=== PATIENT | male | born 1970 | race Caucasian/White ===

== ENCOUNTER 2018-03-25 11:56 | Day surgery (SDC) | payer OTHER ==
[2018-03-25] MEDS ORDERED: PROPOFOL 60 ML (14:45)
[2018-03-25] MEDS ORDERED: LIDOCAINE 2% (SDV) 5 ML INJ (14:45)
== END 2018-03-25 16:57 | disposition home or self-care (01) ==
LOC: GIL 11:56
DX: K29.60 Other gastritis without bleeding (principal); K64.8 Other hemorrhoids; E78.5 Hyperlipidemia, unspecified; I10 Essential (primary) hypertension; E66.9 Obesity, unspecified; Z68.32 Body mass index [BMI] 32.0-32.9, adult
CPT/HCPCS: 43239; 88305; 88312

== ENCOUNTER 2018-09-14 11:43 | Inpatient (IN) | payer OTHER ==
[2018-09-14 12:58] LABS: ADD MAN DIFF? NO
[2018-09-14 13:00] LABS: ABNORMAL IP MESSAGE 1; BASOPHILS % 0.2 % (0.0-2.0); EOSINOPHILS # 0.1 10^3/ul (0.0-0.5); EOSINOPHILS % 1.4 % (0.0-7.0); HEMATOCRIT 23.8 % (42.0-52.0); LYMPHOCYTES # 1.1 10^3/ul (0.8-2.9); LYMPHOCYTES % 21.1 % (15.0-51.0); MEAN CORPUSCULAR HEMOGLOBIN 17.3 pg (29.0-33.0); MEAN CORPUSCULAR HGB CONC 25.2 g/dl (32.0-37.0); MEAN CORPUSCULAR VOLUME 68.6 fl (82.0-101.0); MEAN PLATELET VOLUME 9.4 fl (7.4-10.4); MONOCYTE # 0.3 10^3/ul (0.3-0.9); MONOCYTES % 5.6 % (0.0-11.0); NEUTROPHIL # 3.6 10^3/ul (1.6-7.5); NEUTROPHILS % 71.5 % (39.0-77.0); PLATELET COUNT 477 10^3/UL (140-415); POSITIVE DIFF @See below; RED BLOOD COUNT 3.47 10^6/ul (4.70-6.10); RED CELL DISTRIBUTION WIDTH 19.8 % (11.5-14.5)
[2018-09-14 13:05] LABS: INR 1.07; PATH REVIEW? YES; PT RATIO 1.1
[2018-09-14 13:06] LABS: PARTIAL THROMBOPLASTIN TIME 27.1 Sec (23.0-35.0)
[2018-09-14 13:07] LABS: ALANINE AMINOTRANSFERASE 19 IU/L (13-69); ALBUMIN 3.9 g/dl (3.3-4.9); ALKALINE PHOSPHATASE 74 IU/L (42-121); ANION GAP 9 (5-13); ASPARTATE AMINO TRANSFERASE 9 IU/L (15-46); BILIRUBIN,INDIRECT 0.4 mg/dl (0-1.1); BILIRUBIN,TOTAL 0.4 mg/dl (0.2-1.3); BLOOD UREA NITROGEN 11 mg/dl (7-20); CALCIUM 9.1 mg/dl (8.4-10.2); CARBON DIOXIDE 28 mmol/L (21-31); CHLORIDE 103 mmol/L (97-110); Estimated GFR > 60 mL/min (>60); GLUCOSE 103 mg/dl (70-220); POTASSIUM 3.9 mmol/L (3.5-5.1); SODIUM 140 mmol/L (135-144); TOTAL PROTEIN 6.5 g/dl (6.1-8.1)
[2018-09-14 13:30] LABS: ANISOCYTOSIS 3+ (0-0); BAND NEUTROPHILS % (M) 1 % (0-4); ELLIPTO 1+ (0-0); EOSINOPHILS % (M) 2 % (0-7); HYPOCHROMASIA 3+ (0-0); LYMPHOCYTES #M 0.7 10^3/ul (0.8-2.9); LYMPHOCYTES % (M) 15 % (15-51); MICROCYTOSIS 3+ (0-0); MONOCYTE #M 0.3 10^3/ul (0.3-0.9); MONOCYTES % (M) 7 % (0-11); OVALOCYTES 1+ (0-0); PLATELET ESTIMATE NORMAL; PLATELET MORPHOLOGY COMMENT @See below; POIKILOCYTOSIS 3+ (0-0); POLYCHROMASIA 3+ (0-0); REACTIVE LYMPHOCYTES #M 0.1 10^3/ul (0.0-0.0); REACTIVE LYMPHOCYTES% (M) 2 % (0-0); SEG NEUT #M 3.7 10^3/ul (1.6-7.5); SEGMENTED NEUTROPHILS (M) % 73 % (39-77); TEAR DROP CELLS 1+ (0-0)
[2018-09-14 13:40] LABS: TROPONIN-I < 0.012 ng/ml (0.000-0.120)
[2018-09-14] MEDS ORDERED: NACL 0.9% 3 ML SYG IV (14:00)
[2018-09-14] MEDS ORDERED: HYDROCODONE/APAP (5/325) TAB PO (14:00)
[2018-09-14] MEDS ORDERED: ACETAMINOPHEN 325 MG TAB PO (14:00)
[2018-09-14] MEDS ORDERED: ONDANSETRON 4 MG INJ IV (14:00)
[2018-09-14 14:17] LABS: IRON < 10 ug/dl (35-150)
[2018-09-14 14:24] LABS: TOTAL IRON BINDING CAPACITY 402 ug/dl (241-421)
[2018-09-14] MEDS: SOD CHLORIDE 0.9% 1,000 ML IV ×2 (14:30→21:12)
[2018-09-14 15:13] LABS: IMMEDIATE SPIN CROSSMATCH 1 2
[2018-09-14 19:24] LABS: FERRITIN 4.7 ng/ml (11.1-264.0)
[2018-09-14] MEDS: HYDROCORTISONE 25 MG SUPP PR (21:00)
[2018-09-14] MEDS: PANTOPRAZOLE 40 MG INJ IV (21:09)
[2018-09-15 04:33] LABS: ADD MAN DIFF? NO
[2018-09-15 04:36] LABS: ABNORMAL IP MESSAGE 1; BASOPHIL # 0.1 10^3/ul (0.0-0.1); BASOPHILS % 0.7 % (0.0-2.0); EOSINOPHILS # 0.1 10^3/ul (0.0-0.5); EOSINOPHILS % 0.7 % (0.0-7.0); HEMATOCRIT 26.3 % (42.0-52.0); HEMOGLOBIN 7.4 g/dl (14.0-18.0); LYMPHOCYTES # 0.9 10^3/ul (0.8-2.9); LYMPHOCYTES % 12.4 % (15.0-51.0); MEAN CORPUSCULAR HEMOGLOBIN 19.6 pg (29.0-33.0); MEAN CORPUSCULAR HGB CONC 28.1 g/dl (32.0-37.0); MEAN CORPUSCULAR VOLUME 69.8 fl (82.0-101.0); MEAN PLATELET VOLUME 9.9 fl (7.4-10.4); MONOCYTE # 0.4 10^3/ul (0.3-0.9); MONOCYTES % 5.7 % (0.0-11.0); NEUTROPHIL # 5.6 10^3/ul (1.6-7.5); NEUTROPHILS % 80.2 % (39.0-77.0); PLATELET COUNT 443 10^3/UL (140-415); POSITIVE DIFF @See below; RED BLOOD COUNT 3.77 10^6/ul (4.70-6.10); RED CELL DISTRIBUTION WIDTH 22.5 % (11.5-14.5)
[2018-09-15 04:56] LABS: CHOL/HDL RATIO 5.7 RATIO; CHOLESTEROL 121 mg/dl (100-200); HDL CHOLESTEROL 21 mg/dl (28-71); LDL CHOLESTEROL,CALCULATED 81 mg/dl; MAGNESIUM 2.1 mg/dl (1.7-2.5); TRIGLYCERIDES 93 mg/dl (0-149)
[2018-09-15 04:56] LABS: PHOSPHORUS 3.3 mg/dl (2.5-4.9)
[2018-09-15 04:57] LABS: ALANINE AMINOTRANSFERASE 19 IU/L (13-69); ALBUMIN 3.3 g/dl (3.3-4.9); ALBUMIN/GLOBULIN RATIO 1.26; ALKALINE PHOSPHATASE 74 IU/L (42-121); ANION GAP 9 (5-13); ASPARTATE AMINO TRANSFERASE < 8 IU/L (15-46); BILIRUBIN,INDIRECT 1.2 mg/dl (0-1.1); BILIRUBIN,TOTAL 1.2 mg/dl (0.2-1.3); BLOOD UREA NITROGEN 8 mg/dl (7-20); CARBON DIOXIDE 28 mmol/L (21-31); CHLORIDE 105 mmol/L (97-110); CREATININE 0.68 mg/dl (0.61-1.24); Estimated GFR > 60 mL/min (>60); GLUCOSE 108 mg/dl (70-220); POTASSIUM 4.3 mmol/L (3.5-5.1); SODIUM 142 mmol/L (135-144); TOTAL PROTEIN 5.9 g/dl (6.1-8.1)
[2018-09-15] MEDS: PANTOPRAZOLE 40 MG INJ IV (06:26)
[2018-09-15] MEDS: SOD FERRIC GLUC COMPLX 125 MG in SOD CHLORIDE 0.9% 100 ML IVPB (09:01)
[2018-09-15 11:30] LABS: ADD MAN DIFF? NO
[2018-09-15 11:31] LABS: ABNORMAL IP MESSAGE 1; BASOPHILS % 0.5 % (0.0-2.0); EOSINOPHILS % 0.5 % (0.0-7.0); HEMOGLOBIN 7.4 g/dl (14.0-18.0); LYMPHOCYTES # 1.2 10^3/ul (0.8-2.9); LYMPHOCYTES % 21.2 % (15.0-51.0); MEAN CORPUSCULAR HEMOGLOBIN 19.2 pg (29.0-33.0); MEAN CORPUSCULAR HGB CONC 27.4 g/dl (32.0-37.0); MEAN CORPUSCULAR VOLUME 70.1 fl (82.0-101.0); MEAN PLATELET VOLUME 9.6 fl (7.4-10.4); MONOCYTE # 0.4 10^3/ul (0.3-0.9); MONOCYTES % 6.4 % (0.0-11.0); NEUTROPHIL # 3.9 10^3/ul (1.6-7.5); NEUTROPHILS % 71.2 % (39.0-77.0); PLATELET COUNT 454 10^3/UL (140-415); POSITIVE DIFF @See below; RED BLOOD COUNT 3.85 10^6/ul (4.70-6.10); RED CELL DISTRIBUTION WIDTH 22.8 % (11.5-14.5)
[2018-09-15 11:31] LABS: WHITE BLOOD COUNT 5.5 10^3/ul (4.8-10.8)
== END 2018-09-15 12:38 | disposition home or self-care (01) | DRG 379 ==
LOC: E/R 11:43 → 6WM 13:20
PROC: 30233N1 Transfusion of Nonautologous Red Blood Cells into Peripheral Vein, Percutaneous Approach (ICD-10-PCS; principal; 2018-09-14)
DX: K92.1 Melena (principal); D50.9 Iron deficiency anemia, unspecified; K64.8 Other hemorrhoids; F32.9 Major depressive disorder, single episode, unspecified; Z96.651 Presence of right artificial knee joint; E66.9 Obesity, unspecified; Z68.31 Body mass index [BMI] 31.0-31.9, adult
CPT/HCPCS: 36415; 36430; 80053; 80061; 82728; 83036; 83540; 83735; 84100; 84484; 85025; 85610; 85730; 86644; 86850; 86900; 86901; 86920; 93005; 99291-25

== ENCOUNTER 2018-10-20 10:53 | Inpatient (IN) | payer OTHER ==
[2018-10-20] MEDS: PANTOPRAZOLE 40 MG INJ IV (11:45)
[2018-10-20 12:15] LABS: ADD MAN DIFF? NO
[2018-10-20 12:19] LABS: ABNORMAL IP MESSAGE 1; BASOPHILS % 0.2 % (0.0-2.0); EOSINOPHILS # 0.2 10^3/ul (0.0-0.5); EOSINOPHILS % 4.1 % (0.0-7.0); HEMATOCRIT 24.6 % (42.0-52.0); LYMPHOCYTES % 20.8 % (15.0-51.0); MEAN CORPUSCULAR HEMOGLOBIN 18.2 pg (29.0-33.0); MEAN CORPUSCULAR HGB CONC 25.6 g/dl (32.0-37.0); MEAN CORPUSCULAR VOLUME 71.1 fl (82.0-101.0); MEAN PLATELET VOLUME 10.4 fl (7.4-10.4); MONOCYTE # 0.4 10^3/ul (0.3-0.9); NEUTROPHIL # 3.3 10^3/ul (1.6-7.5); NEUTROPHILS % 66.7 % (39.0-77.0); PLATELET COUNT 378 10^3/UL (140-415); POSITIVE DIFF @See below; RED BLOOD COUNT 3.46 10^6/ul (4.70-6.10); RED CELL DISTRIBUTION WIDTH 21.2 % (11.5-14.5)
[2018-10-20 12:19] LABS: WHITE BLOOD COUNT 4.9 10^3/ul (4.8-10.8)
[2018-10-20 12:25] LABS: HEMOGLOBIN 6.3 g/dl (14.0-18.0)
[2018-10-20 12:40] LABS: INR 1.01; PARTIAL THROMBOPLASTIN TIME 24.1 Sec (23.0-35.0); PROTIME 13.4 Sec (11.9-14.9)
[2018-10-20 12:44] LABS: ALANINE AMINOTRANSFERASE 19 IU/L (13-69); ALBUMIN 3.8 g/dl (3.3-4.9); ALBUMIN/GLOBULIN RATIO 1.26; ALKALINE PHOSPHATASE 64 IU/L (42-121); ANION GAP 6 (5-13); ASPARTATE AMINO TRANSFERASE 12 IU/L (15-46); BILIRUBIN,INDIRECT 0.3 mg/dl (0-1.1); BILIRUBIN,TOTAL 0.3 mg/dl (0.2-1.3); BLOOD UREA NITROGEN 10 mg/dl (7-20); CALCIUM 9.1 mg/dl (8.4-10.2); CARBON DIOXIDE 29 mmol/L (21-31); CHLORIDE 103 mmol/L (97-110); CREATININE 0.74 mg/dl (0.61-1.24); Estimated GFR > 60 mL/min (>60); GLUCOSE 85 mg/dl (70-220); POTASSIUM 3.9 mmol/L (3.5-5.1); SODIUM 138 mmol/L (135-144); TOTAL PROTEIN 6.8 g/dl (6.1-8.1)
[2018-10-20 12:54] LABS: TROPONIN-I < 0.012 ng/ml (0.000-0.120)
[2018-10-20 13:08] LABS: ANISOCYTOSIS 2+ (0-0); BAND NEUTROPHILS % (M) 2 % (0-4); EOSINOPHILS % (M) 6 % (0-7); GIANT THROMBO% (M) 2 % (0-0); LYMPHOCYTES #M 0.7 10^3/ul (0.8-2.9); LYMPHOCYTES % (M) 15 % (15-51); MICROCYTOSIS 1+ (0-0); OVALOCYTES 1+ (0-0); PLATELET ESTIMATE NORMAL; POIKILOCYTOSIS 2+ (0-0); SEG NEUT #M 3.8 10^3/ul (1.6-7.5); SEGMENTED NEUTROPHILS (M) % 77 % (39-77); SMUDGE%M 7 % (0-0)
[2018-10-20 13:09] LABS: PATH REVIEW? YES
[2018-10-20] MEDS: SOD CHLORIDE 0.9% 1,000 ML IV ×2 (13:36→23:36)
[2018-10-20 13:39] LABS: IMMEDIATE SPIN CROSSMATCH 1 2
[2018-10-20] MEDS ORDERED: NACL 0.9% 3 ML SYG IV (14:00)
[2018-10-20] MEDS ORDERED: ONDANSETRON 4 MG INJ IV (14:00)
[2018-10-20] MEDS ORDERED: HYDROCODONE/APAP (5/325) TAB PO (14:00)
[2018-10-20] MEDS ORDERED: ACETAMINOPHEN 325 MG TAB PO (14:00)
[2018-10-20] MEDS ORDERED: morphine 2 MG INJ IV (14:00)
[2018-10-20] MEDS: PANTOPRAZOLE IV 80 MG in SOD CHLORIDE 0.9% 100 ML IV (14:59)
[2018-10-21] MEDS: SOD CHLORIDE 0.9% 1,000 ML IV ×2 (01:43→16:08)
[2018-10-21] MEDS: PANTOPRAZOLE IV 80 MG in SOD CHLORIDE 0.9% 100 ML IV ×4 (02:02→21:00)
[2018-10-21 05:55] LABS: ADD MAN DIFF? NO
[2018-10-21 05:59] LABS: ABNORMAL IP MESSAGE 1; BASOPHILS % 0.3 % (0.0-2.0); EOSINOPHILS # 0.2 10^3/ul (0.0-0.5); EOSINOPHILS % 2.8 % (0.0-7.0); LYMPHOCYTES % 16.1 % (15.0-51.0); MEAN CORPUSCULAR HEMOGLOBIN 19.4 pg (29.0-33.0); MEAN CORPUSCULAR HGB CONC 26.9 g/dl (32.0-37.0); MEAN CORPUSCULAR VOLUME 72.2 fl (82.0-101.0); MEAN PLATELET VOLUME 9.9 fl (7.4-10.4); MONOCYTE # 0.4 10^3/ul (0.3-0.9); MONOCYTES % 6.5 % (0.0-11.0); NEUTROPHIL # 4.5 10^3/ul (1.6-7.5); PLATELET COUNT 358 10^3/UL (140-415); POSITIVE DIFF @See below
[2018-10-21 06:17] LABS: ALANINE AMINOTRANSFERASE 19 IU/L (13-69); ALBUMIN 3.5 g/dl (3.3-4.9); ALKALINE PHOSPHATASE 67 IU/L (42-121); ANION GAP 7 (5-13); ASPARTATE AMINO TRANSFERASE 13 IU/L (15-46); BILIRUBIN,INDIRECT 0.6 mg/dl (0-1.1); BILIRUBIN,TOTAL 0.6 mg/dl (0.2-1.3); BLOOD UREA NITROGEN 13 mg/dl (7-20); CALCIUM 9.3 mg/dl (8.4-10.2); CARBON DIOXIDE 31 mmol/L (21-31); CHLORIDE 103 mmol/L (97-110); CREATININE 0.79 mg/dl (0.61-1.24); Estimated GFR > 60 mL/min (>60); GLUCOSE 100 mg/dl (70-220); MAGNESIUM 2.1 mg/dl (1.7-2.5); POTASSIUM 4.3 mmol/L (3.5-5.1); SODIUM 141 mmol/L (135-144); TOTAL PROTEIN 6.4 g/dl (6.1-8.1)
[2018-10-21 06:29] LABS: HEMOGLOBIN A1C 5.5 % (0-5.9)
[2018-10-21] MEDS: SOD CHLORIDE 0.9% 250 ML IV* (11:00)
[2018-10-21 14:56] LABS: HEMATOCRIT 29.1 % (42.0-52.0); HEMOGLOBIN 8.1 g/dl (14.0-18.0)
[2018-10-21] MEDS: AZITHROMYCIN 500MG/NS (PMX) 250 ML IVPB (16:07)
[2018-10-21] MEDS: BISACODYL (EC) 5 MG TAB PO (16:09)
[2018-10-21] MEDS: GUAIFENESIN/CODEINE 5ML CUP PO ×2 (16:36→21:31)
[2018-10-21] MEDS: POLYETHYLENE GLYCOL 3350 119 GM POWDER PO (17:41)
[2018-10-21] MEDS: MAGNESIUM CITRATE 300 ML BTL PO (17:45)
[2018-10-21 18:58] LABS: HEMATOCRIT 30.5 % (42.0-52.0); HEMOGLOBIN 8.4 g/dl (14.0-18.0)
[2018-10-22 01:02] LABS: HEMATOCRIT 28.1 % (42.0-52.0); HEMOGLOBIN 7.7 g/dl (14.0-18.0)
[2018-10-22] MEDS: SOD CHLORIDE 0.9% 1,000 ML IV ×3 (02:51→23:48)
[2018-10-22] MEDS: PANTOPRAZOLE IV 80 MG in SOD CHLORIDE 0.9% 100 ML IV ×2 (02:51→17:42)
[2018-10-22 06:02] LABS: ADD MAN DIFF? NO
[2018-10-22 06:09] LABS: WHITE BLOOD COUNT 5.6 10^3/ul (4.8-10.8)
[2018-10-22 06:09] LABS: ABNORMAL IP MESSAGE 1; BASOPHILS % 0.5 % (0.0-2.0); EOSINOPHILS # 0.3 10^3/ul (0.0-0.5); EOSINOPHILS % 5.3 % (0.0-7.0); HEMOGLOBIN 7.9 g/dl (14.0-18.0); LYMPHOCYTES # 1.2 10^3/ul (0.8-2.9); LYMPHOCYTES % 20.6 % (15.0-51.0); MEAN CORPUSCULAR HEMOGLOBIN 20.5 pg (29.0-33.0); MEAN CORPUSCULAR HGB CONC 28.2 g/dl (32.0-37.0); MEAN CORPUSCULAR VOLUME 72.7 fl (82.0-101.0); MEAN PLATELET VOLUME 10.4 fl (7.4-10.4); MONOCYTE # 0.4 10^3/ul (0.3-0.9); MONOCYTES % 7.5 % (0.0-11.0); NEUTROPHIL # 3.7 10^3/ul (1.6-7.5); NEUTROPHILS % 65.7 % (39.0-77.0); PLATELET COUNT 351 10^3/UL (140-415); POSITIVE DIFF @See below; RED BLOOD COUNT 3.85 10^6/ul (4.70-6.10); RED CELL DISTRIBUTION WIDTH 22.5 % (11.5-14.5)
[2018-10-22] MEDS: POLYETHYLENE GLYCOL 3350 119 GM POWDER PO (06:11)
[2018-10-22 06:31] LABS: ANION GAP 8 (5-13); BLOOD UREA NITROGEN 13 mg/dl (7-20); CALCIUM 8.8 mg/dl (8.4-10.2); CARBON DIOXIDE 26 mmol/L (21-31); CHLORIDE 103 mmol/L (97-110); CREATININE 0.77 mg/dl (0.61-1.24); Estimated GFR > 60 mL/min (>60); GLUCOSE 97 mg/dl (70-220); MAGNESIUM 2.2 mg/dl (1.7-2.5); PHOSPHORUS 3.6 mg/dl (2.5-4.9); POTASSIUM 3.9 mmol/L (3.5-5.1); SODIUM 137 mmol/L (135-144)
[2018-10-22] MEDS: BISACODYL (EC) 5 MG TAB PO (09:00)
[2018-10-22] MEDS: AZITHROMYCIN 500MG/NS (PMX) 250 ML IVPB (13:19)
[2018-10-22] MEDS ORDERED: hydrALAzine 20 MG INJ IV (15:00)
[2018-10-22] MEDS ORDERED: ONDANSETRON 4 MG INJ IV (15:00)
[2018-10-22] MEDS ORDERED: EPHEDrine SULFATE 50 MG/5 ML SYG IV (15:00)
[2018-10-22] MEDS ORDERED: FENTAnyl 50 MCG/ML VIAL IV ×2 (15:00)
[2018-10-22] MEDS ORDERED: LABETALOL HCL 20MG INJ IV (15:00)
[2018-10-22] MEDS: GUAIFENESIN/CODEINE 5ML CUP PO ×2 (17:42→21:52)
[2018-10-23] MEDS: PANTOPRAZOLE IV 80 MG in SOD CHLORIDE 0.9% 100 ML IV (02:15)
[2018-10-23 05:13] LABS: ADD MAN DIFF? NO
[2018-10-23 05:19] LABS: ABNORMAL IP MESSAGE 1; BASOPHILS % 0.4 % (0.0-2.0); EOSINOPHILS # 0.2 10^3/ul (0.0-0.5); EOSINOPHILS % 4.4 % (0.0-7.0); HEMATOCRIT 27.6 % (42.0-52.0); HEMOGLOBIN 7.6 g/dl (14.0-18.0); LYMPHOCYTES # 1.1 10^3/ul (0.8-2.9); LYMPHOCYTES % 21.7 % (15.0-51.0); MEAN CORPUSCULAR HEMOGLOBIN 20.1 pg (29.0-33.0); MEAN CORPUSCULAR HGB CONC 27.5 g/dl (32.0-37.0); MEAN CORPUSCULAR VOLUME 72.8 fl (82.0-101.0); MEAN PLATELET VOLUME 10.4 fl (7.4-10.4); MONOCYTE # 0.4 10^3/ul (0.3-0.9); NEUTROPHIL # 3.4 10^3/ul (1.6-7.5); NEUTROPHILS % 66.3 % (39.0-77.0); PLATELET COUNT 348 10^3/UL (140-415); POSITIVE DIFF @See below; RED BLOOD COUNT 3.79 10^6/ul (4.70-6.10); RED CELL DISTRIBUTION WIDTH 22.9 % (11.5-14.5)
[2018-10-23 05:19] LABS: WHITE BLOOD COUNT 5.2 10^3/ul (4.8-10.8)
[2018-10-23 05:40] LABS: ANION GAP 8 (5-13); BLOOD UREA NITROGEN 13 mg/dl (7-20); CALCIUM 8.8 mg/dl (8.4-10.2); CARBON DIOXIDE 25 mmol/L (21-31); CHLORIDE 107 mmol/L (97-110); CREATININE 0.84 mg/dl (0.61-1.24); Estimated GFR > 60 mL/min (>60); GLUCOSE 96 mg/dl (70-220); MAGNESIUM 2.2 mg/dl (1.7-2.5); PHOSPHORUS 4.2 mg/dl (2.5-4.9); POTASSIUM 3.8 mmol/L (3.5-5.1); SODIUM 140 mmol/L (135-144)
[2018-10-23] MEDS: PROPOFOL 60 ML (09:51)
[2018-10-23] MEDS: SOD CHLORIDE 0.9% 1,000 ML IV (09:51)
[2018-10-23] MEDS: PANTOPRAZOLE (EC) 40 MG TAB PO (10:53)
[2018-10-23] MEDS: AZITHROMYCIN 500MG/NS (PMX) 250 ML IVPB (13:17)
[2018-10-23] MEDS: BARIUM SULFATE 0.1% 450 ML BTL (VOLUMEN) PO (16:26)
[2018-10-23] MEDS: GLUCAGON 1 MG INJ IV (17:48)
[2018-10-23] MEDS: SOD CHLORIDE 0.9% 100 ML (17:58)
[2018-10-23] MEDS: IOHEXOL 100 ML (17:58)
[2018-10-23] MEDS: IOHEXOL 350MG/ML 50 ML BTL (17:58)
[2018-10-23] MEDS: BARIUM SULF 2% 450 ML BTL (BERRY SMOOTHIE) PO (18:06)
[2018-10-24 05:14] LABS: ADD MAN DIFF? NO
[2018-10-24] MEDS: PANTOPRAZOLE (EC) 40 MG TAB PO (05:37)
[2018-10-24 05:39] LABS: ABNORMAL IP MESSAGE 1; BASOPHILS % 0.8 % (0.0-2.0); EOSINOPHILS # 0.2 10^3/ul (0.0-0.5); EOSINOPHILS % 4.1 % (0.0-7.0); HEMATOCRIT 27.3 % (42.0-52.0); HEMOGLOBIN 7.5 g/dl (14.0-18.0); LYMPHOCYTES # 1.3 10^3/ul (0.8-2.9); LYMPHOCYTES % 26.2 % (15.0-51.0); MEAN CORPUSCULAR HEMOGLOBIN 19.9 pg (29.0-33.0); MEAN CORPUSCULAR HGB CONC 27.5 g/dl (32.0-37.0); MEAN CORPUSCULAR VOLUME 72.4 fl (82.0-101.0); MEAN PLATELET VOLUME 10.1 fl (7.4-10.4); MONOCYTE # 0.3 10^3/ul (0.3-0.9); MONOCYTES % 5.7 % (0.0-11.0); NEUTROPHIL # 3.1 10^3/ul (1.6-7.5); PLATELET COUNT 338 10^3/UL (140-415); POSITIVE DIFF @See below; RED BLOOD COUNT 3.77 10^6/ul (4.70-6.10); RED CELL DISTRIBUTION WIDTH 23.5 % (11.5-14.5)
[2018-10-24 05:39] LABS: WHITE BLOOD COUNT 4.9 10^3/ul (4.8-10.8)
[2018-10-24 06:04] LABS: ANION GAP 9 (5-13); BLOOD UREA NITROGEN 11 mg/dl (7-20); CARBON DIOXIDE 27 mmol/L (21-31); CHLORIDE 102 mmol/L (97-110); CREATININE 0.86 mg/dl (0.61-1.24); Estimated GFR > 60 mL/min (>60); GLUCOSE 87 mg/dl (70-220); MAGNESIUM 2.1 mg/dl (1.7-2.5); PHOSPHORUS 4.5 mg/dl (2.5-4.9); SODIUM 138 mmol/L (135-144)
[2018-10-24] MEDS: AZITHROMYCIN 500MG/NS (PMX) 250 ML IVPB (16:12)
[2018-10-24] MEDS: SOD FERRIC GLUC COMPLX 125 MG in SOD CHLORIDE 0.9% 100 ML IVPB (18:04)
[2018-10-24] MEDS: HYDROCORTISONE 25 MG SUPP PR ×2 (18:04→22:16)
[2018-10-25 01:06] LABS: IMMEDIATE SPIN CROSSMATCH 1 1
[2018-10-25] MEDS: PANTOPRAZOLE (EC) 40 MG TAB PO (05:20)
[2018-10-25 06:00] LABS: ABNORMAL IP MESSAGE 1; ADD MAN DIFF? NO; BASOPHILS % 0.7 % (0.0-2.0); EOSINOPHILS # 0.2 10^3/ul (0.0-0.5); HEMATOCRIT 29.8 % (42.0-52.0); HEMOGLOBIN 8.4 g/dl (14.0-18.0); LYMPHOCYTES # 1.5 10^3/ul (0.8-2.9); MEAN CORPUSCULAR HEMOGLOBIN 21.1 pg (29.0-33.0); MEAN CORPUSCULAR HGB CONC 28.2 g/dl (32.0-37.0); MEAN CORPUSCULAR VOLUME 74.9 fl (82.0-101.0); MEAN PLATELET VOLUME 10.2 fl (7.4-10.4); MONOCYTE # 0.3 10^3/ul (0.3-0.9); NEUTROPHIL # 3.7 10^3/ul (1.6-7.5); NEUTROPHILS % 64.1 % (39.0-77.0); PLATELET COUNT 336 10^3/UL (140-415); POSITIVE DIFF @See below; RED BLOOD COUNT 3.98 10^6/ul (4.70-6.10); RED CELL DISTRIBUTION WIDTH 24.1 % (11.5-14.5)
[2018-10-25 06:00] LABS: WHITE BLOOD COUNT 5.7 10^3/ul (4.8-10.8)
[2018-10-25] MEDS: HYDROCORTISONE 25 MG SUPP PR (08:45)
[2018-10-25] MEDS: SOD FERRIC GLUC COMPLX 125 MG in SOD CHLORIDE 0.9% 100 ML IVPB (13:50)
== END 2018-10-25 15:27 | disposition home or self-care (01) | DRG 378 ==
LOC: E/R 10:53 → PP2 13:10
PROC: 0DJ08ZZ Inspection of Upper Intestinal Tract, Via Natural or Artificial Opening Endoscopic (ICD-10-PCS; principal; 2018-10-22 14:45)
PROC: 0DJD8ZZ Inspection of Lower Intestinal Tract, Via Natural or Artificial Opening Endoscopic (ICD-10-PCS; 2018-10-22 14:45)
PROC: 30233N1 Transfusion of Nonautologous Red Blood Cells into Peripheral Vein, Percutaneous Approach (ICD-10-PCS; 2018-10-22 14:45)
DX: K92.2 Gastrointestinal hemorrhage, unspecified (principal); D62 Acute posthemorrhagic anemia; K63.89 Other specified diseases of intestine; K64.0 First degree hemorrhoids
CPT/HCPCS: 36415; 36430; 71045; 74177; 78278; 80048; 80053; 83036; 83735; 84100; 84484; 85014; 85018; 85025; 85610; 85730; 86850; 86870; 86900; 86901; 86920; 87081; 93005; 96374; 99285-25

== ENCOUNTER 2018-11-30 07:28 | Day surgery (SDC) | payer OTHER ==
[2018-11-30] MEDS: SOD CHLORIDE 0.9% 1,000 ML IV (10:00)
[2018-11-30] MEDS: CEFAZOLIN 1 GM/50 ML (PMX) 50 ML IVPB (10:00)
[2018-11-30] MEDS: FENTAnyl 50 MCG/ML VIAL ×2 (10:18→10:20)
[2018-11-30] MEDS: LIDOCAINE 1%/EPI (1:100,000) (MDV) 20 ML (10:19)
[2018-11-30] MEDS: MIDAZOLAM 1 MG/ML 2 ML INJ (10:19)
[2018-11-30] MEDS: HEPARIN 1000 UNITS/ML 10 ML INJ (10:20)
[2018-11-30] MEDS: POLYMYXIN/BACITRACIN 1L IRRIG IRR (10:30)
[2018-11-30] MEDS ORDERED: HYDROCODONE/APAP (5/325) TAB PO (11:00)
== END 2018-11-30 13:00 | disposition home or self-care (01) ==
LOC: SDS 07:28
DX: D50.9 Iron deficiency anemia, unspecified (principal)
CPT/HCPCS: 36561; 76942

== ENCOUNTER 2019-01-24 09:12 | Inpatient (IN) | payer OTHER ==
[2019-01-24] MEDS: SOD CHLORIDE 0.45% 1,000 ML IV (02:13)
[2019-01-24] MEDS: PANTOPRAZOLE 40 MG INJ IV (10:59)
[2019-01-24 11:05] LABS: ABNORMAL IP MESSAGE 1; HEMATOCRIT 15.8 % (42.0-52.0); MEAN CORPUSCULAR HEMOGLOBIN 19.6 pg (29.0-33.0); MEAN CORPUSCULAR HGB CONC 27.2 g/dl (32.0-37.0); MEAN CORPUSCULAR VOLUME 72.1 fl (82.0-101.0); MEAN PLATELET VOLUME 9.9 fl (7.4-10.4); NUCLEATED RED BLOOD CELLS% 0.4 /100WBC (0.0-0.0); PLATELET COUNT 380 10^3/UL (140-415); POSITIVE DIFF @See below; RED BLOOD COUNT 2.19 10^6/ul (4.70-6.10); RED CELL DISTRIBUTION WIDTH 18.6 % (11.5-14.5)
[2019-01-24 11:05] LABS: WHITE BLOOD COUNT 5.1 10^3/ul (4.8-10.8)
[2019-01-24 11:09] LABS: ADD MAN DIFF? YES; HEMOGLOBIN 4.3 g/dl (14.0-18.0); PATH REVIEW? YES
[2019-01-24 11:24] LABS: INR 1.02; PROTIME 13.5 Sec (11.9-14.9); PT RATIO 1.1
[2019-01-24 11:25] LABS: PARTIAL THROMBOPLASTIN TIME 24.2 Sec (23.0-35.0)
[2019-01-24 11:28] LABS: ANISOCYTOSIS 3+ (0-0); ELLIPTO 1+ (0-0); EOSINOPHILS % (M) 2 % (0-7); HYPOCHROMASIA 2+ (0-0); LYMPHOCYTES #M 0.9 10^3/ul (0.8-2.9); LYMPHOCYTES % (M) 19 % (15-51); MICROCYTOSIS 3+ (0-0); MONOCYTE #M 0.1 10^3/ul (0.3-0.9); MONOCYTES % (M) 2 % (0-11); PLATELET ESTIMATE NORMAL; POIKILOCYTOSIS 1+ (0-0); POLYCHROMASIA 3+ (0-0); SEGMENTED NEUTROPHILS (M) % 77 % (39-77); SMUDGE%M 2 % (0-0); TEAR DROP CELLS 1+ (0-0)
[2019-01-24 11:33] LABS: ALANINE AMINOTRANSFERASE 17 IU/L (13-69); ALBUMIN 3.4 g/dl (3.3-4.9); ALKALINE PHOSPHATASE 76 IU/L (42-121); ANION GAP 8 (5-13); ASPARTATE AMINO TRANSFERASE 10 IU/L (15-46); BILIRUBIN,INDIRECT 0.3 mg/dl (0-1.1); BILIRUBIN,TOTAL 0.3 mg/dl (0.2-1.3); BLOOD UREA NITROGEN 14 mg/dl (7-20); CALCIUM 8.4 mg/dl (8.4-10.2); CARBON DIOXIDE 27 mmol/L (21-31); CHLORIDE 104 mmol/L (97-110); CREATININE 0.73 mg/dl (0.61-1.24); Estimated GFR > 60 mL/min (>60); GLUCOSE 121 mg/dl (70-220); POTASSIUM 3.8 mmol/L (3.5-5.1); SODIUM 139 mmol/L (135-144)
[2019-01-24 11:45] LABS: TROPONIN-I < 0.012 ng/ml (0.000-0.120)
[2019-01-24] MEDS: ACETAMINOPHEN 325 MG TAB PO (11:49)
[2019-01-24] MEDS ORDERED: ONDANSETRON 4 MG INJ IV ×2 (12:00→13:00)
[2019-01-24] MEDS ORDERED: ACETAMINOPHEN 325 MG TAB PO (12:00)
[2019-01-24] MEDS ORDERED: hydrALAzine 20 MG INJ IV (13:00)
[2019-01-24] MEDS ORDERED: ALBUTEROL/IPRATROPIUM (NEB) 3 ML AMP HHN (13:00)
[2019-01-24] MEDS ORDERED: OCTREOTIDE 1 MG in DEXTROSE 5% 95 ML IV (13:00)
[2019-01-24] MEDS ORDERED: LORAZEPAM 2 MG INJ IV (13:00)
[2019-01-24] MEDS ORDERED: NITROGLYCERIN (SL) 0.4 MG TAB SL (13:00)
[2019-01-24] MEDS: SOD CHLORIDE 0.9% 1,000 ML IV (13:00)
[2019-01-24] MEDS ORDERED: MAGNESIUM HYDROXIDE 30ML CUP PO (13:00)
[2019-01-24] MEDS ORDERED: DOCUSATE SODIUM 100 MG CAP PO (13:00)
[2019-01-24] MEDS ORDERED: NACL 0.9% 3 ML SYG IV (13:00)
[2019-01-24] MEDS ORDERED: morphine 2 MG INJ IV (13:00)
[2019-01-24 14:01] LABS: FREE T4 (FREE THYROXINE) 1.01 ng/dl (0.64-1.79)
[2019-01-24] MEDS: HYDROCODONE/APAP (5/325) TAB PO (18:20)
[2019-01-25] MEDS: PANTOPRAZOLE 40 MG INJ IV ×3 (00:52→20:54)
[2019-01-25] MEDS: SOD CHLORIDE 0.9% 0 ML IV (01:12)
[2019-01-25] MEDS: SOD CHLORIDE 0.45% 1,000 ML IV ×3 (02:01→20:54)
[2019-01-25] MEDS: ACETAMINOPHEN 325 MG TAB PO (03:27)
[2019-01-25 05:22] LABS: ADD MAN DIFF? NO
[2019-01-25 05:35] LABS: WHITE BLOOD COUNT 6.4 10^3/ul (4.8-10.8)
[2019-01-25 05:35] LABS: ABNORMAL IP MESSAGE 1; BASOPHILS % 0.6 % (0.0-2.0); EOSINOPHILS # 0.1 10^3/ul (0.0-0.5); EOSINOPHILS % 1.9 % (0.0-7.0); HEMATOCRIT 19.9 % (42.0-52.0); LYMPHOCYTES # 0.9 10^3/ul (0.8-2.9); LYMPHOCYTES % 13.9 % (15.0-51.0); MEAN CORPUSCULAR HEMOGLOBIN 23.4 pg (29.0-33.0); MEAN CORPUSCULAR HGB CONC 30.2 g/dl (32.0-37.0); MEAN CORPUSCULAR VOLUME 77.7 fl (82.0-101.0); MONOCYTE # 0.3 10^3/ul (0.3-0.9); MONOCYTES % 4.4 % (0.0-11.0); NEUTROPHILS % 78.7 % (39.0-77.0); NUCLEATED RED BLOOD CELLS% 0.3 /100WBC (0.0-0.0); PLATELET COUNT 332 10^3/UL (140-415); POSITIVE DIFF @See below; RED BLOOD COUNT 2.56 10^6/ul (4.70-6.10); RED CELL DISTRIBUTION WIDTH 19.7 % (11.5-14.5)
[2019-01-25 05:56] LABS: ANION GAP 5 (5-13); BLOOD UREA NITROGEN 8 mg/dl (7-20); CALCIUM 8.2 mg/dl (8.4-10.2); CARBON DIOXIDE 27 mmol/L (21-31); CHLORIDE 107 mmol/L (97-110); CREATININE 0.71 mg/dl (0.61-1.24); Estimated GFR > 60 mL/min (>60); GLUCOSE 96 mg/dl (70-220); MAGNESIUM 2.1 mg/dl (1.7-2.5); PHOSPHORUS 3.1 mg/dl (2.5-4.9); POTASSIUM 3.9 mmol/L (3.5-5.1); SODIUM 139 mmol/L (135-144)
[2019-01-25 07:19] LABS: HDL CHOLESTEROL 22 mg/dl (28-71); LDL CHOLESTEROL,CALCULATED 67 mg/dl; TRIGLYCERIDES 115 mg/dl (0-149)
[2019-01-25 07:19] LABS: CHOLESTEROL 112 mg/dl (100-200)
[2019-01-25 08:42] LABS: HEMOGLOBIN A1C 5.6 % (0-5.9)
[2019-01-25 20:08] LABS: RETICULOCYTE COUNT # 0.037 X10^6 (0.020-0.110); RETICULOCYTE COUNT % 1.1 % (0.5-1.5)
[2019-01-25 20:08] LABS: RETICULOCYTE RBC 3.42
[2019-01-25 20:26] LABS: IRON 15 ug/dl (35-150)
[2019-01-25 20:26] LABS: LACTATE DEHYDROGENASE 356 IU/L (313-618)
[2019-01-25 20:49] LABS: % IRON SATURATION 4 % SAT (22-52); TOTAL IRON BINDING CAPACITY 390 ug/dl (241-421)
[2019-01-25 21:02] LABS: FERRITIN 6.7 ng/ml (11.1-264.0)
[2019-01-25 21:33] LABS: FOLATE 8.7 ng/ml (2.8-20.0)
[2019-01-26 05:59] LABS: ADD MAN DIFF? NO
[2019-01-26 06:10] LABS: BASOPHILS % 0.5 % (0.0-2.0); EOSINOPHILS # 0.1 10^3/ul (0.0-0.5); EOSINOPHILS % 1.5 % (0.0-7.0); HEMATOCRIT 24.6 % (42.0-52.0); HEMOGLOBIN 7.4 g/dl (14.0-18.0); LYMPHOCYTES % 15.6 % (15.0-51.0); MEAN CORPUSCULAR HEMOGLOBIN 23.6 pg (29.0-33.0); MEAN CORPUSCULAR HGB CONC 30.1 g/dl (32.0-37.0); MEAN CORPUSCULAR VOLUME 78.6 fl (82.0-101.0); MEAN PLATELET VOLUME 9.9 fl (7.4-10.4); MONOCYTE # 0.4 10^3/ul (0.3-0.9); MONOCYTES % 6.9 % (0.0-11.0); NEUTROPHIL # 4.6 10^3/ul (1.6-7.5); NEUTROPHILS % 74.7 % (39.0-77.0); NUCLEATED RED BLOOD CELLS% 0.3 /100WBC (0.0-0.0); PLATELET COUNT 380 10^3/UL (140-415); RED BLOOD COUNT 3.13 10^6/ul (4.70-6.10); RED CELL DISTRIBUTION WIDTH 19.9 % (11.5-14.5)
[2019-01-26 06:10] LABS: WHITE BLOOD COUNT 6.2 10^3/ul (4.8-10.8)
[2019-01-26 06:48] LABS: ANION GAP 6 (5-13); BLOOD UREA NITROGEN 8 mg/dl (7-20); CALCIUM 7.9 mg/dl (8.4-10.2); CARBON DIOXIDE 23 mmol/L (21-31); CHLORIDE 106 mmol/L (97-110); CREATININE 0.77 mg/dl (0.61-1.24); Estimated GFR > 60 mL/min (>60); GLUCOSE 88 mg/dl (70-220); POTASSIUM 3.6 mmol/L (3.5-5.1); SODIUM 135 mmol/L (135-144)
[2019-01-26] MEDS: PANTOPRAZOLE 40 MG INJ IV ×2 (08:49→20:32)
[2019-01-26] MEDS: SOD FERRIC GLUC COMPLX 125 MG in SOD CHLORIDE 0.9% 100 ML IVPB (14:04)
[2019-01-26] MEDS: SOD CHLORIDE 0.45% 1,000 ML IV (14:04)
[2019-01-26 18:48] LABS: HEMATOCRIT 23.5 % (42.0-52.0); HEMOGLOBIN 7.1 g/dl (14.0-18.0)
[2019-01-27] MEDS: ACETAMINOPHEN 325 MG TAB PO (01:51)
[2019-01-27 04:47] LABS: AHG CROSSMATCH 1 9
[2019-01-27] MEDS: SOD CHLORIDE 0.9% 250 ML IV* (04:57)
[2019-01-27] MEDS: SOD CHLORIDE 0.45% 1,000 ML IV ×3 (07:21→22:54)
[2019-01-27 09:17] LABS: ADD MAN DIFF? NO
[2019-01-27 09:20] LABS: WHITE BLOOD COUNT 5.9 10^3/ul (4.8-10.8)
[2019-01-27 09:20] LABS: BASOPHIL # 0.1 10^3/ul (0.0-0.1); BASOPHILS % 0.8 % (0.0-2.0); EOSINOPHILS # 0.2 10^3/ul (0.0-0.5); EOSINOPHILS % 2.5 % (0.0-7.0); HEMATOCRIT 32.3 % (42.0-52.0); LYMPHOCYTES # 1.1 10^3/ul (0.8-2.9); MEAN CORPUSCULAR HEMOGLOBIN 25.1 pg (29.0-33.0); MEAN PLATELET VOLUME 10.3 fl (7.4-10.4); MONOCYTE # 0.4 10^3/ul (0.3-0.9); MONOCYTES % 7.3 % (0.0-11.0); NEUTROPHIL # 4.1 10^3/ul (1.6-7.5); NEUTROPHILS % 69.6 % (39.0-77.0); NUCLEATED RED BLOOD CELLS # 0.1 10^3/ul (0.0-0.0); NUCLEATED RED BLOOD CELLS% 0.8 /100WBC (0.0-0.0); PLATELET COUNT 428 10^3/UL (140-415); RED BLOOD COUNT 3.99 10^6/ul (4.70-6.10)
[2019-01-27 09:37] LABS: ANION GAP 7 (5-13); BLOOD UREA NITROGEN 10 mg/dl (7-20); CALCIUM 9.2 mg/dl (8.4-10.2); CARBON DIOXIDE 25 mmol/L (21-31); CHLORIDE 111 mmol/L (97-110); CREATININE 0.94 mg/dl (0.61-1.24); Estimated GFR > 60 mL/min (>60); GLUCOSE 138 mg/dl (70-220); POTASSIUM 4.2 mmol/L (3.5-5.1); SODIUM 143 mmol/L (135-144)
[2019-01-27] MEDS: PANTOPRAZOLE 40 MG INJ IV ×2 (10:31→20:20)
[2019-01-27] MEDS: SOD FERRIC GLUC COMPLX 125 MG in SOD CHLORIDE 0.9% 100 ML IVPB (14:05)
[2019-01-27 16:02] LABS: HAPTOGLOBIN 294 mg/dL (43-212)
[2019-01-28 07:38] LABS: ADD MAN DIFF? NO
[2019-01-28 07:45] LABS: WHITE BLOOD COUNT 5.2 10^3/ul (4.8-10.8)
[2019-01-28 07:45] LABS: BASOPHILS % 0.8 % (0.0-2.0); EOSINOPHILS # 0.1 10^3/ul (0.0-0.5); EOSINOPHILS % 2.3 % (0.0-7.0); HEMOGLOBIN 8.9 g/dl (14.0-18.0); LYMPHOCYTES # 1.2 10^3/ul (0.8-2.9); LYMPHOCYTES % 23.8 % (15.0-51.0); MEAN CORPUSCULAR HEMOGLOBIN 24.7 pg (29.0-33.0); MEAN CORPUSCULAR HGB CONC 29.7 g/dl (32.0-37.0); MEAN CORPUSCULAR VOLUME 83.1 fl (82.0-101.0); MEAN PLATELET VOLUME 10.3 fl (7.4-10.4); MONOCYTE # 0.4 10^3/ul (0.3-0.9); MONOCYTES % 6.8 % (0.0-11.0); NEUTROPHIL # 3.4 10^3/ul (1.6-7.5); NEUTROPHILS % 65.7 % (39.0-77.0); PLATELET COUNT 382 10^3/UL (140-415); RED BLOOD COUNT 3.61 10^6/ul (4.70-6.10); RED CELL DISTRIBUTION WIDTH 21.2 % (11.5-14.5)
[2019-01-28 08:07] LABS: ANION GAP 7 (5-13); BLOOD UREA NITROGEN 13 mg/dl (7-20); CALCIUM 8.7 mg/dl (8.4-10.2); CARBON DIOXIDE 25 mmol/L (21-31); CHLORIDE 109 mmol/L (97-110); Estimated GFR > 60 mL/min (>60); GLUCOSE 100 mg/dl (70-220); POTASSIUM 3.9 mmol/L (3.5-5.1); SODIUM 141 mmol/L (135-144)
[2019-01-28] MEDS: PANTOPRAZOLE 40 MG INJ IV (08:23)
[2019-01-28] MEDS: SOD FERRIC GLUC COMPLX 125 MG in SOD CHLORIDE 0.9% 100 ML IVPB (12:44)
[2019-01-28 14:18] LABS: HEMATOCRIT 29.4 % (42.0-52.0); HEMOGLOBIN 8.9 g/dl (14.0-18.0)
[2019-01-28] MEDS: SOD CHLORIDE 0.45% 1,000 ML IV (15:21)
[2019-01-28] MEDS: HEPARIN (100 UNITS/ML) 5 ML SYG CATHETER (17:17)
== END 2019-01-28 17:40 | disposition home or self-care (01) | DRG 812 ==
LOC: E/R 09:12 → PP2 12:00
PROC: 30233N1 Transfusion of Nonautologous Red Blood Cells into Peripheral Vein, Percutaneous Approach (ICD-10-PCS; principal; 2019-01-24)
DX: D62 Acute posthemorrhagic anemia (principal); K64.9 Unspecified hemorrhoids; R51 Headache
CPT/HCPCS: 36415; 36430; 78278; 80048; 80053; 80061; 82607; 82728; 82746; 82962; 83010; 83036; 83540; 83615; 83735; 84100; 84439; 84443; 84484; 85014; 85018; 85025; 85045; 85610; 85730; 86644; 86850; 86900; 86901; 86920; 93005; 96374; 97161; 99285-25

== ENCOUNTER 2019-03-12 17:29 | Inpatient (IN) | payer OTHER ==
[2019-03-12] MEDS: ACETAMINOPHEN 325 MG TAB PO (17:51)
[2019-03-12] MEDS: CEFEPIME 2GM/50 ML (PMX) 50 ML IVPB (17:51)
[2019-03-12 17:52] LABS: WHITE BLOOD COUNT 1.5 10^3/ul (4.8-10.8)
[2019-03-12 17:52] LABS: ABNORMAL IP MESSAGE 1; HEMATOCRIT 42.5 % (42.0-52.0); HEMOGLOBIN 12.5 g/dl (14.0-18.0); MEAN CORPUSCULAR HGB CONC 29.4 g/dl (32.0-37.0); MEAN CORPUSCULAR VOLUME 81.7 fl (82.0-101.0); MEAN PLATELET VOLUME 11.1 fl (7.4-10.4); PLATELET COUNT 278 10^3/UL (140-415); POSITIVE DIFF @See below; RED CELL DISTRIBUTION WIDTH 19.9 % (11.5-14.5)
[2019-03-12] MEDS: SODIUM CHLORIDE 0.9% 1L BAG IV* (17:52)
[2019-03-12 18:01] LABS: ADD MAN DIFF? YES
[2019-03-12] MEDS: VANCOMYCIN 1 GM (PMX) 250 ML IVPB (18:05)
[2019-03-12] MEDS: ALBUTEROL 0.5% (NEB) 2.5 MG/0.5 ML AMP INH (18:07)
[2019-03-12 18:08] LABS: INR 1.17; PARTIAL THROMBOPLASTIN TIME 23.5 Sec (23.0-35.0); PT RATIO 1.2
[2019-03-12 18:14] LABS: ALANINE AMINOTRANSFERASE 92 IU/L (13-69); ALBUMIN 3.5 g/dl (3.3-4.9); ALBUMIN/GLOBULIN RATIO 1.06; ALKALINE PHOSPHATASE 281 IU/L (42-121); ANION GAP 13 (5-13); ASPARTATE AMINO TRANSFERASE 133 IU/L (15-46); BILIRUBIN,INDIRECT 0.8 mg/dl (0-1.1); BILIRUBIN,TOTAL 0.8 mg/dl (0.2-1.3); BLOOD UREA NITROGEN 15 mg/dl (7-20); CALCIUM 9.2 mg/dl (8.4-10.2); CARBON DIOXIDE 22 mmol/L (21-31); CHLORIDE 104 mmol/L (97-110); CREATININE 1.22 mg/dl (0.61-1.24); Estimated GFR > 60 mL/min (>60); GLUCOSE 111 mg/dl (70-220); POTASSIUM 3.3 mmol/L (3.5-5.1); SODIUM 139 mmol/L (135-144); TOTAL PROTEIN 6.8 g/dl (6.1-8.1)
[2019-03-12 18:25] LABS: TROPONIN-I < 0.012 ng/ml (0.000-0.120)
[2019-03-12] MEDS: SOD CHLORIDE 0.9% 100 ML (18:52)
[2019-03-12] MEDS: IODIXANOL LOCM 100 ML BTL (18:52)
[2019-03-12 19:34] LABS: ANISOCYTOSIS 1+ (0-0); BAND NEUTROPHILS % (M) 2 % (0-4); BURR CELLS 2+ (0-0); GIANT THROMBO% (M) 14 % (0-0); LYMPHOCYTES #M 0.1 10^3/ul (0.8-2.9); LYMPHOCYTES % (M) 8 % (15-51); MICROCYTOSIS 1+ (0-0); OVALOCYTES 2+ (0-0); PLATELET ESTIMATE NORMAL; POIKILOCYTOSIS 3+ (0-0); POLYCHROMASIA 1+ (0-0); SEG NEUT #M 1.4 10^3/ul (1.6-7.5); SEGMENTED NEUTROPHILS (M) % 90 % (39-77); TEAR DROP CELLS 1+ (0-0)
[2019-03-12 20:03] LABS: LACTIC ACID 3.4 mmol/L (0.5-2.0)
[2019-03-12] MEDS: IBUPROFEN 800 MG TAB PO (20:19)
[2019-03-12] MEDS: SOD CHLORIDE 0.9% 1,000 ML IV ×3 (20:20→23:40)
[2019-03-12 21:44] LABS: LACTIC ACID 2.6 mmol/L (0.5-2.0)
[2019-03-12] MEDS ORDERED: ACETAMINOPHEN 325 MG TAB PO (23:30)
[2019-03-12] MEDS ORDERED: ONDANSETRON 4 MG INJ IV (23:30)
[2019-03-12] MEDS: NORepinephrine 8MG/250 ML (PMX 250 ML IV (23:41)
[2019-03-13] MEDS: SOD CHLORIDE 0.9% 1,000 ML IV ×4 (01:04→19:23)
[2019-03-13] MEDS ORDERED: LORAZEPAM 2 MG INJ IV (01:30)
[2019-03-13] MEDS ORDERED: ALBUTEROL/IPRATROPIUM (NEB) 3 ML AMP HHN (01:30)
[2019-03-13] MEDS ORDERED: MAGNESIUM HYDROXIDE 30ML CUP PO (01:30)
[2019-03-13] MEDS ORDERED: NITROGLYCERIN (SL) 0.4 MG TAB SL (01:30)
[2019-03-13] MEDS ORDERED: hydrALAzine 20 MG INJ IV (01:30)
[2019-03-13] MEDS ORDERED: VANCOMYCIN IV PER PHARMACY XX (01:30)
[2019-03-13] MEDS: MEROPENEM 1 GM/50ML(PMX) 50 ML IVPB ×3 (03:14→17:34)
[2019-03-13] MEDS: VANCOMYCIN HCL 1.25 GM in SOD CHLORIDE 0.9% 250 ML IVPB (04:32)
[2019-03-13] MEDS: PANTOPRAZOLE 40 MG INJ IV (05:14)
[2019-03-13 07:03] LABS: ALANINE AMINOTRANSFERASE 99 IU/L (13-69); ALBUMIN 2.6 g/dl (3.3-4.9); ALKALINE PHOSPHATASE 208 IU/L (42-121); ASPARTATE AMINO TRANSFERASE 78 IU/L (15-46); BILIRUBIN,INDIRECT 0.8 mg/dl (0-1.1); BILIRUBIN,TOTAL 0.8 mg/dl (0.2-1.3); TOTAL PROTEIN 5.4 g/dl (6.1-8.1)
[2019-03-13 07:07] LABS: LACTIC ACID 4.1 mmol/L (0.5-2.0)
[2019-03-13 07:17] LABS: FREE T4 (FREE THYROXINE) 1.11 ng/dl (0.64-1.79)
[2019-03-13 08:42] LABS: HEMOGLOBIN A1C 5.1 % (0-5.9)
[2019-03-13] MEDS: FERROUS SULFATE (EC) 325 MG TAB PO (09:12)
[2019-03-13] MEDS: HEPARIN 5,000 UNIT/1 ML VIAL SC ×2 (09:14→20:52)
[2019-03-13 11:02] LABS: TROPONIN-I 0.018 ng/ml (0.000-0.120)
[2019-03-13] MEDS: NORepinephrine 8MG/250 ML (PMX 250 ML IV (13:24)
[2019-03-13 14:48] LABS: LACTIC ACID 3.5 mmol/L (0.5-2.0)
[2019-03-13 15:19] LABS: TROPONIN-I 0.013 ng/ml (0.000-0.120)
[2019-03-13] MEDS: VANCOMYCIN 1 GM 250 ML IVPB (16:08)
[2019-03-13 18:51] LABS: LACTIC ACID 2.6 mmol/L (0.5-2.0)
[2019-03-13 19:23] LABS: TROPONIN-I 0.019 ng/ml (0.000-0.120)
[2019-03-13] MEDS: ACETAMINOPHEN 325 MG TAB PO (20:56)
[2019-03-13 22:07] LABS: LACTIC ACID 1.6 mmol/L (0.5-2.0)
[2019-03-14] MEDS: MEROPENEM 1 GM/50ML(PMX) 50 ML IVPB ×3 (01:25→18:18)
[2019-03-14] MEDS: SOD CHLORIDE 0.9% 1,000 ML IV ×3 (03:40→19:55)
[2019-03-14] MEDS: VANCOMYCIN 1 GM 250 ML IVPB (03:42)
[2019-03-14] MEDS: NORepinephrine 8MG/250 ML (PMX 250 ML IV (03:47)
[2019-03-14] MEDS: morphine 2 MG INJ IV ×2 (03:51→23:52)
[2019-03-14] MEDS: PANTOPRAZOLE 40 MG INJ IV (05:56)
[2019-03-14 06:18] LABS: WHITE BLOOD COUNT 24.4 10^3/ul (4.8-10.8)
[2019-03-14 06:18] LABS: ABNORMAL IP MESSAGE 1; HEMATOCRIT 32.5 % (42.0-52.0); HEMOGLOBIN 9.8 g/dl (14.0-18.0); MEAN CORPUSCULAR HEMOGLOBIN 24.4 pg (29.0-33.0); MEAN CORPUSCULAR HGB CONC 30.2 g/dl (32.0-37.0); MEAN CORPUSCULAR VOLUME 80.8 fl (82.0-101.0); PLATELET COUNT 141 10^3/UL (140-415); POSITIVE DIFF @See below; RED BLOOD COUNT 4.02 10^6/ul (4.70-6.10)
[2019-03-14 06:19] LABS: HEMOGLOBIN A1C 5.3 % (0-5.9); LACTIC ACID 1.3 mmol/L (0.5-2.0)
[2019-03-14 06:26] LABS: ADD MAN DIFF? YES
[2019-03-14 06:48] LABS: TROPONIN-I 0.018 ng/ml (0.000-0.120)
[2019-03-14 07:14] LABS: Estimated GFR > 60 mL/min (>60)
[2019-03-14 07:15] LABS: ANION GAP 6 (5-13)
[2019-03-14 07:16] LABS: CHOL/HDL RATIO 5.1 RATIO; HDL CHOLESTEROL 17 mg/dl (28-71); LDL CHOLESTEROL,CALCULATED 44 mg/dl; TRIGLYCERIDES 136 mg/dl (0-149)
[2019-03-14 07:16] LABS: CHOLESTEROL 88 mg/dl (100-200)
[2019-03-14 07:17] LABS: BLOOD UREA NITROGEN 13 mg/dl (7-20); CALCIUM 7.8 mg/dl (8.4-10.2); CARBON DIOXIDE 22 mmol/L (21-31); CHLORIDE 115 mmol/L (97-110); GLUCOSE 116 mg/dl (70-220); MAGNESIUM 1.8 mg/dl (1.7-2.5); PHOSPHORUS 2.4 mg/dl (2.5-4.9); POTASSIUM 3.3 mmol/L (3.5-5.1); SODIUM 143 mmol/L (135-144)
[2019-03-14] MEDS: HEPARIN 5,000 UNIT/1 ML VIAL SC ×2 (10:32→20:52)
[2019-03-14 11:04] LABS: ANISOCYTOSIS 2+ (0-0); BAND NEUTROPHILS #M 6.3 10^3/ul (0.0-0.6); BAND NEUTROPHILS % (M) 26 % (0-4); BURR CELLS 2+ (0-0); ELLIPTO 1+ (0-0); EOSINOPHILS % (M) 2 % (0-7); LYMPHOCYTES #M 0.7 10^3/ul (0.8-2.9); LYMPHOCYTES % (M) 3 % (15-51); MICROCYTOSIS 1+ (0-0); MONOCYTE #M 0.4 10^3/ul (0.3-0.9); MONOCYTES % (M) 2 % (0-11); OVALOCYTES 1+ (0-0); PLATELET ESTIMATE NORMAL; POIKILOCYTOSIS 3+ (0-0); POLYCHROMASIA 2+ (0-0); SEG NEUT #M 17.9 10^3/ul (1.6-7.5); SEGMENTED NEUTROPHILS (M) % 67 % (39-77); SMUDGE%M 1 % (0-0)
[2019-03-14] MEDS: FERROUS SULFATE (EC) 325 MG TAB PO (11:06)
[2019-03-14] MEDS: HYDROCODONE/APAP (5/325) TAB PO ×2 (12:53→19:10)
[2019-03-14] MEDS: POTASSIUM CHLORIDE 20 MEQ POWDER FOR ORAL SOLN PO (14:41)
[2019-03-14] MEDS: GUAIFENESIN 20 MG/ML 5ML CUP PO ×2 (14:42→19:02)
[2019-03-15] MEDS: MEROPENEM 1 GM/50ML(PMX) 50 ML IVPB ×3 (01:27→18:46)
[2019-03-15] MEDS: HYDROCODONE/APAP (5/325) TAB PO ×3 (03:04→14:52)
[2019-03-15] MEDS: SOD CHLORIDE 0.9% 1,000 ML IV (03:28)
[2019-03-15] MEDS: PANTOPRAZOLE 40 MG INJ IV (05:11)
[2019-03-15 05:36] LABS: WHITE BLOOD COUNT 15.1 10^3/ul (4.8-10.8)
[2019-03-15 05:36] LABS: HEMATOCRIT 28.7 % (42.0-52.0); HEMOGLOBIN 8.6 g/dl (14.0-18.0); MEAN CORPUSCULAR HEMOGLOBIN 24.2 pg (29.0-33.0); MEAN CORPUSCULAR VOLUME 80.8 fl (82.0-101.0); PLATELET COUNT 129 10^3/UL (140-415); POSITIVE DIFF @See below; RED BLOOD COUNT 3.55 10^6/ul (4.70-6.10); RED CELL DISTRIBUTION WIDTH 20.2 % (11.5-14.5)
[2019-03-15 05:39] LABS: ADD MAN DIFF? YES
[2019-03-15 05:54] LABS: IRON 33 ug/dl (35-150)
[2019-03-15 05:55] LABS: ANION GAP 5 (5-13); BLOOD UREA NITROGEN 9 mg/dl (7-20); CALCIUM 7.7 mg/dl (8.4-10.2); CARBON DIOXIDE 25 mmol/L (21-31); CHLORIDE 111 mmol/L (97-110); CREATININE 0.73 mg/dl (0.61-1.24); Estimated GFR > 60 mL/min (>60); GLUCOSE 76 mg/dl (70-220); POTASSIUM 3.4 mmol/L (3.5-5.1); SODIUM 141 mmol/L (135-144)
[2019-03-15 06:03] LABS: % IRON SATURATION 17 % SAT (22-52); TOTAL IRON BINDING CAPACITY 197 ug/dl (241-421)
[2019-03-15 06:47] LABS: ANISOCYTOSIS 1+ (0-0); BAND NEUTROPHILS #M 1.5 10^3/ul (0.0-0.6); BAND NEUTROPHILS % (M) 10 % (0-4); BURR CELLS 2+ (0-0); EOSINOPHILS % (M) 5 % (0-7); GIANT THROMBO% (M) 1 % (0-0); HYPOCHROMASIA 1+ (0-0); LYMPHOCYTES #M 0.4 10^3/ul (0.8-2.9); LYMPHOCYTES % (M) 3 % (15-51); MICROCYTOSIS 1+ (0-0); MONOCYTE #M 0.1 10^3/ul (0.3-0.9); MONOCYTES % (M) 1 % (0-11); OVALOCYTES 1+ (0-0); PLATELET ESTIMATE DECREASED; POIKILOCYTOSIS 3+ (0-0); POLYCHROMASIA 1+ (0-0); REACTIVE LYMPHOCYTES #M 0.1 10^3/ul (0.0-0.0); REACTIVE LYMPHOCYTES% (M) 1 % (0-0); SEG NEUT #M 12.3 10^3/ul (1.6-7.5); SEGMENTED NEUTROPHILS (M) % 80 % (39-77); SMUDGE%M 6 % (0-0); SPHEROCYTES 1+ (0-0); TEAR DROP CELLS 1+ (0-0)
[2019-03-15 08:02] LABS: MAGNESIUM 1.8 mg/dl (1.7-2.5)
[2019-03-15] MEDS: FERROUS SULFATE (EC) 325 MG TAB PO (08:40)
[2019-03-15] MEDS: HEPARIN 5,000 UNIT/1 ML VIAL SC ×2 (08:41→20:57)
[2019-03-15] MEDS: GUAIFENESIN 20 MG/ML 5ML CUP PO ×2 (14:52→20:52)
[2019-03-15] MEDS: morphine 2 MG INJ IV (20:52)
[2019-03-16] MEDS: MEROPENEM 1 GM/50ML(PMX) 50 ML IVPB ×3 (03:06→17:12)
[2019-03-16] MEDS: morphine 2 MG INJ IV ×2 (03:15→21:08)
[2019-03-16 05:35] LABS: ADD MAN DIFF? NO
[2019-03-16 05:38] LABS: ABNORMAL IP MESSAGE 1; BASOPHILS % 0.3 % (0.0-2.0); EOSINOPHILS # 0.3 10^3/ul (0.0-0.5); EOSINOPHILS % 2.7 % (0.0-7.0); HEMATOCRIT 29.8 % (42.0-52.0); HEMOGLOBIN 8.9 g/dl (14.0-18.0); LYMPHOCYTES % 9.6 % (15.0-51.0); MEAN CORPUSCULAR HEMOGLOBIN 23.6 pg (29.0-33.0); MEAN CORPUSCULAR HGB CONC 29.9 g/dl (32.0-37.0); MONOCYTE # 0.5 10^3/ul (0.3-0.9); MONOCYTES % 4.6 % (0.0-11.0); NEUTROPHIL # 8.4 10^3/ul (1.6-7.5); NEUTROPHILS % 81.7 % (39.0-77.0); PLATELET COUNT 177 10^3/UL (140-415); POSITIVE DIFF @See below; RED BLOOD COUNT 3.77 10^6/ul (4.70-6.10); RED CELL DISTRIBUTION WIDTH 20.4 % (11.5-14.5)
[2019-03-16 05:38] LABS: WHITE BLOOD COUNT 10.3 10^3/ul (4.8-10.8)
[2019-03-16] MEDS: PANTOPRAZOLE 40 MG INJ IV (05:40)
[2019-03-16 06:14] LABS: ANION GAP 9 (5-13); BLOOD UREA NITROGEN 8 mg/dl (7-20); CALCIUM 7.9 mg/dl (8.4-10.2); CARBON DIOXIDE 25 mmol/L (21-31); CHLORIDE 108 mmol/L (97-110); CREATININE 0.67 mg/dl (0.61-1.24); Estimated GFR > 60 mL/min (>60); GLUCOSE 83 mg/dl (70-220); POTASSIUM 3.4 mmol/L (3.5-5.1); SODIUM 142 mmol/L (135-144)
[2019-03-16] MEDS: FERROUS SULFATE (EC) 325 MG TAB PO (08:06)
[2019-03-16] MEDS: HEPARIN 5,000 UNIT/1 ML VIAL SC ×2 (08:08→21:07)
[2019-03-16] MEDS: HYDROCODONE/APAP (5/325) TAB PO ×2 (09:16→15:23)
[2019-03-16] MEDS: GUAIFENESIN 20 MG/ML 5ML CUP PO ×3 (09:17→21:08)
[2019-03-16] MEDS ORDERED: BISACODYL (EC) 5 MG TAB PO (15:30)
[2019-03-16] MEDS: POTASSIUM CHLORIDE (SR) 10 MEQ TAB PO (16:51)
[2019-03-16] MEDS: POLYETHYLENE GLYCOL 17 GM PACKET PO (21:05)
[2019-03-17] MEDS: HYDROCODONE/APAP (5/325) TAB PO ×3 (01:08→15:48)
[2019-03-17] MEDS: MEROPENEM 1 GM/50ML(PMX) 50 ML IVPB ×3 (01:09→18:12)
[2019-03-17] MEDS: GUAIFENESIN 20 MG/ML 5ML CUP PO ×4 (01:12→21:49)
[2019-03-17 05:17] LABS: ADD MAN DIFF? NO
[2019-03-17 05:31] LABS: ABNORMAL IP MESSAGE 1; BASOPHIL # 0.1 10^3/ul (0.0-0.1); BASOPHILS % 0.6 % (0.0-2.0); EOSINOPHILS # 0.4 10^3/ul (0.0-0.5); HEMATOCRIT 31.8 % (42.0-52.0); HEMOGLOBIN 9.6 g/dl (14.0-18.0); LYMPHOCYTES % 11.4 % (15.0-51.0); MEAN CORPUSCULAR HEMOGLOBIN 23.9 pg (29.0-33.0); MEAN CORPUSCULAR HGB CONC 30.2 g/dl (32.0-37.0); MEAN CORPUSCULAR VOLUME 79.3 fl (82.0-101.0); MONOCYTE # 0.6 10^3/ul (0.3-0.9); MONOCYTES % 6.3 % (0.0-11.0); NEUTROPHIL # 6.9 10^3/ul (1.6-7.5); NEUTROPHILS % 76.6 % (39.0-77.0); PLATELET COUNT 165 10^3/UL (140-415); POSITIVE DIFF @See below; RED BLOOD COUNT 4.01 10^6/ul (4.70-6.10); RED CELL DISTRIBUTION WIDTH 20.6 % (11.5-14.5)
[2019-03-17 05:50] LABS: ANION GAP 4 (5-13); BLOOD UREA NITROGEN 10 mg/dl (7-20); CALCIUM 8.6 mg/dl (8.4-10.2); CARBON DIOXIDE 29 mmol/L (21-31); CHLORIDE 107 mmol/L (97-110); CREATININE 0.75 mg/dl (0.61-1.24); Estimated GFR > 60 mL/min (>60); GLUCOSE 103 mg/dl (70-220); POTASSIUM 3.9 mmol/L (3.5-5.1); SODIUM 140 mmol/L (135-144)
[2019-03-17 05:55] LABS: PHOSPHORUS 3.2 mg/dl (2.5-4.9)
[2019-03-17 05:55] LABS: MAGNESIUM 1.9 mg/dl (1.7-2.5)
[2019-03-17] MEDS: POLYETHYLENE GLYCOL 17 GM PACKET PO ×2 (08:51→21:00)
[2019-03-17] MEDS: DOCUSATE SODIUM 100 MG CAP PO (08:51)
[2019-03-17] MEDS: FERROUS SULFATE (EC) 325 MG TAB PO (08:51)
[2019-03-17] MEDS: HEPARIN 5,000 UNIT/1 ML VIAL SC ×2 (08:54→21:49)
[2019-03-17] MEDS: NACL 0.9% 3 ML SYG IV (08:55)
[2019-03-17] MEDS: FAMOTIDINE 20 MG INJ IV ×2 (08:58→21:44)
[2019-03-17] MEDS: morphine 2 MG INJ IV (21:49)
[2019-03-18] MEDS: MEROPENEM 1 GM/50ML(PMX) 50 ML IVPB ×3 (01:30→18:32)
[2019-03-18] MEDS: HYDROCODONE/APAP (5/325) TAB PO ×2 (04:23→18:33)
[2019-03-18] MEDS: GUAIFENESIN 20 MG/ML 5ML CUP PO ×4 (04:24→20:52)
[2019-03-18 05:53] LABS: ADD MAN DIFF? NO
[2019-03-18 05:56] LABS: WHITE BLOOD COUNT 9.5 10^3/ul (4.8-10.8)
[2019-03-18 05:56] LABS: ABNORMAL IP MESSAGE 1; BASOPHIL # 0.1 10^3/ul (0.0-0.1); BASOPHILS % 0.5 % (0.0-2.0); EOSINOPHILS # 0.3 10^3/ul (0.0-0.5); EOSINOPHILS % 3.4 % (0.0-7.0); HEMATOCRIT 32.7 % (42.0-52.0); LYMPHOCYTES # 1.1 10^3/ul (0.8-2.9); LYMPHOCYTES % 11.3 % (15.0-51.0); MEAN CORPUSCULAR HEMOGLOBIN 24.3 pg (29.0-33.0); MEAN CORPUSCULAR HGB CONC 30.6 g/dl (32.0-37.0); MEAN CORPUSCULAR VOLUME 79.4 fl (82.0-101.0); MEAN PLATELET VOLUME 11.5 fl (7.4-10.4); MONOCYTE # 0.7 10^3/ul (0.3-0.9); MONOCYTES % 7.3 % (0.0-11.0); NEUTROPHIL # 7.2 10^3/ul (1.6-7.5); NEUTROPHILS % 76.3 % (39.0-77.0); PLATELET COUNT 221 10^3/UL (140-415); POSITIVE DIFF @See below; RED BLOOD COUNT 4.12 10^6/ul (4.70-6.10); RED CELL DISTRIBUTION WIDTH 20.9 % (11.5-14.5)
[2019-03-18 06:28] LABS: ANION GAP 6 (5-13); BLOOD UREA NITROGEN 14 mg/dl (7-20); CALCIUM 8.3 mg/dl (8.4-10.2); CARBON DIOXIDE 27 mmol/L (21-31); CHLORIDE 106 mmol/L (97-110); Estimated GFR > 60 mL/min (>60); GLUCOSE 111 mg/dl (70-220); POTASSIUM 4.2 mmol/L (3.5-5.1); SODIUM 139 mmol/L (135-144)
[2019-03-18 06:31] LABS: PHOSPHORUS 3.2 mg/dl (2.5-4.9)
[2019-03-18 06:31] LABS: MAGNESIUM 2.1 mg/dl (1.7-2.5)
[2019-03-18] MEDS: POLYETHYLENE GLYCOL 17 GM PACKET PO ×2 (09:38→20:52)
[2019-03-18] MEDS: FERROUS SULFATE (EC) 325 MG TAB PO (09:39)
[2019-03-18] MEDS: morphine 2 MG INJ IV ×3 (09:39→20:52)
[2019-03-18] MEDS: FAMOTIDINE 20 MG INJ IV (09:39)
[2019-03-18] MEDS: HEPARIN 5,000 UNIT/1 ML VIAL SC ×2 (09:44→20:55)
[2019-03-18] MEDS: FAMOTIDINE 20 MG TAB PO (20:52)
[2019-03-19] MEDS: MEROPENEM 1 GM/50ML(PMX) 50 ML IVPB ×3 (01:22→17:21)
[2019-03-19] MEDS: GUAIFENESIN 20 MG/ML 5ML CUP PO ×4 (04:29→20:44)
[2019-03-19] MEDS: morphine 2 MG INJ IV ×4 (04:30→19:36)
[2019-03-19 05:56] LABS: ADD MAN DIFF? NO
[2019-03-19 06:01] LABS: WHITE BLOOD COUNT 8.1 10^3/ul (4.8-10.8)
[2019-03-19 06:01] LABS: ABNORMAL IP MESSAGE 1; BASOPHILS % 0.5 % (0.0-2.0); EOSINOPHILS # 0.4 10^3/ul (0.0-0.5); EOSINOPHILS % 4.5 % (0.0-7.0); HEMATOCRIT 32.9 % (42.0-52.0); LYMPHOCYTES # 1.1 10^3/ul (0.8-2.9); LYMPHOCYTES % 13.7 % (15.0-51.0); MEAN CORPUSCULAR HEMOGLOBIN 24.2 pg (29.0-33.0); MEAN CORPUSCULAR HGB CONC 30.4 g/dl (32.0-37.0); MEAN CORPUSCULAR VOLUME 79.5 fl (82.0-101.0); MONOCYTE # 0.8 10^3/ul (0.3-0.9); MONOCYTES % 9.3 % (0.0-11.0); NEUTROPHIL # 5.7 10^3/ul (1.6-7.5); PLATELET COUNT 260 10^3/UL (140-415); POSITIVE DIFF @See below; RED BLOOD COUNT 4.14 10^6/ul (4.70-6.10); RED CELL DISTRIBUTION WIDTH 21.4 % (11.5-14.5)
[2019-03-19 06:48] LABS: PHOSPHORUS 3.4 mg/dl (2.5-4.9)
[2019-03-19 06:52] LABS: ANION GAP 6 (5-13); BLOOD UREA NITROGEN 10 mg/dl (7-20); CALCIUM 8.7 mg/dl (8.4-10.2); CARBON DIOXIDE 29 mmol/L (21-31); CHLORIDE 103 mmol/L (97-110); CREATININE 0.62 mg/dl (0.61-1.24); Estimated GFR > 60 mL/min (>60); GLUCOSE 101 mg/dl (70-220); POTASSIUM 4.2 mmol/L (3.5-5.1); SODIUM 138 mmol/L (135-144)
[2019-03-19] MEDS: FAMOTIDINE 20 MG TAB PO ×2 (08:12→20:45)
[2019-03-19] MEDS: FERROUS SULFATE (EC) 325 MG TAB PO (08:12)
[2019-03-19] MEDS: POLYETHYLENE GLYCOL 17 GM PACKET PO ×2 (08:12→20:44)
[2019-03-19] MEDS: HEPARIN 5,000 UNIT/1 ML VIAL SC ×2 (08:14→20:48)
[2019-03-19] MEDS: HYDROCODONE/APAP (5/325) TAB PO (09:20)
[2019-03-19] MEDS: KETOROLAC 30 MG INJ IV (16:59)
[2019-03-20] MEDS: MEROPENEM 1 GM/50ML(PMX) 50 ML IVPB ×3 (01:29→17:35)
[2019-03-20] MEDS: morphine 2 MG INJ IV ×3 (01:31→20:17)
[2019-03-20 05:13] LABS: ADD MAN DIFF? NO
[2019-03-20 05:16] LABS: ABNORMAL IP MESSAGE 1; BASOPHILS % 0.4 % (0.0-2.0); EOSINOPHILS # 0.2 10^3/ul (0.0-0.5); EOSINOPHILS % 3.1 % (0.0-7.0); HEMATOCRIT 32.9 % (42.0-52.0); HEMOGLOBIN 9.9 g/dl (14.0-18.0); LYMPHOCYTES % 12.6 % (15.0-51.0); MEAN CORPUSCULAR HEMOGLOBIN 24.1 pg (29.0-33.0); MEAN CORPUSCULAR HGB CONC 30.1 g/dl (32.0-37.0); MEAN PLATELET VOLUME 11.4 fl (7.4-10.4); MONOCYTE # 0.6 10^3/ul (0.3-0.9); MONOCYTES % 7.4 % (0.0-11.0); NEUTROPHIL # 5.9 10^3/ul (1.6-7.5); NEUTROPHILS % 76.1 % (39.0-77.0); PLATELET COUNT 307 10^3/UL (140-415); POSITIVE DIFF @See below; RED BLOOD COUNT 4.11 10^6/ul (4.70-6.10); RED CELL DISTRIBUTION WIDTH 21.8 % (11.5-14.5)
[2019-03-20 05:16] LABS: WHITE BLOOD COUNT 7.7 10^3/ul (4.8-10.8)
[2019-03-20 05:43] LABS: ANION GAP 4 (5-13); BLOOD UREA NITROGEN 20 mg/dl (7-20); CALCIUM 8.7 mg/dl (8.4-10.2); CARBON DIOXIDE 30 mmol/L (21-31); CHLORIDE 104 mmol/L (97-110); CREATININE 0.72 mg/dl (0.61-1.24); Estimated GFR > 60 mL/min (>60); GLUCOSE 115 mg/dl (70-220); POTASSIUM 4.5 mmol/L (3.5-5.1); SODIUM 138 mmol/L (135-144)
[2019-03-20 06:08] LABS: PHOSPHORUS 3.4 mg/dl (2.5-4.9)
[2019-03-20 06:08] LABS: MAGNESIUM 2.2 mg/dl (1.7-2.5)
[2019-03-20] MEDS: KETOROLAC 30 MG INJ IV ×3 (06:15→23:48)
[2019-03-20] MEDS: GUAIFENESIN 20 MG/ML 5ML CUP PO ×3 (06:15→20:11)
[2019-03-20] MEDS: FERROUS SULFATE (EC) 325 MG TAB PO (08:49)
[2019-03-20] MEDS: POLYETHYLENE GLYCOL 17 GM PACKET PO ×2 (08:49→20:16)
[2019-03-20] MEDS: FAMOTIDINE 20 MG TAB PO ×2 (08:49→20:11)
[2019-03-20] MEDS: HEPARIN 5,000 UNIT/1 ML VIAL SC ×2 (08:51→20:12)
[2019-03-21] MEDS: MEROPENEM 1 GM/50ML(PMX) 50 ML IVPB ×3 (01:35→18:04)
[2019-03-21] MEDS: morphine 2 MG INJ IV ×4 (04:13→23:18)
[2019-03-21 05:13] LABS: ADD MAN DIFF? NO
[2019-03-21 05:27] LABS: WHITE BLOOD COUNT 8.1 10^3/ul (4.8-10.8)
[2019-03-21 05:27] LABS: BASOPHILS % 0.4 % (0.0-2.0); EOSINOPHILS # 0.1 10^3/ul (0.0-0.5); EOSINOPHILS % 1.6 % (0.0-7.0); HEMOGLOBIN 9.6 g/dl (14.0-18.0); LYMPHOCYTES % 11.7 % (15.0-51.0); MEAN CORPUSCULAR HEMOGLOBIN 23.8 pg (29.0-33.0); MEAN CORPUSCULAR VOLUME 79.2 fl (82.0-101.0); MEAN PLATELET VOLUME 10.9 fl (7.4-10.4); MONOCYTE # 0.6 10^3/ul (0.3-0.9); MONOCYTES % 7.6 % (0.0-11.0); NEUTROPHIL # 6.4 10^3/ul (1.6-7.5); NEUTROPHILS % 78.3 % (39.0-77.0); PLATELET COUNT 334 10^3/UL (140-415); RED BLOOD COUNT 4.04 10^6/ul (4.70-6.10); RED CELL DISTRIBUTION WIDTH 21.8 % (11.5-14.5)
[2019-03-21 05:51] LABS: PHOSPHORUS 3.9 mg/dl (2.5-4.9)
[2019-03-21 05:51] LABS: MAGNESIUM 2.3 mg/dl (1.7-2.5)
[2019-03-21 05:58] LABS: ANION GAP 5 (5-13); BLOOD UREA NITROGEN 23 mg/dl (7-20); CALCIUM 8.7 mg/dl (8.4-10.2); CARBON DIOXIDE 28 mmol/L (21-31); CHLORIDE 105 mmol/L (97-110); CREATININE 1.01 mg/dl (0.61-1.24); Estimated GFR > 60 mL/min (>60); GLUCOSE 92 mg/dl (70-220); POTASSIUM 4.7 mmol/L (3.5-5.1); SODIUM 138 mmol/L (135-144)
[2019-03-21] MEDS: KETOROLAC 30 MG INJ IV (06:38)
[2019-03-21] MEDS: HEPARIN 5,000 UNIT/1 ML VIAL SC ×2 (08:25→20:42)
[2019-03-21] MEDS: POLYETHYLENE GLYCOL 17 GM PACKET PO ×2 (08:26→20:31)
[2019-03-21] MEDS: FERROUS SULFATE (EC) 325 MG TAB PO (08:26)
[2019-03-21] MEDS: FAMOTIDINE 20 MG TAB PO ×2 (08:26→20:32)
[2019-03-21] MEDS: SOD CHLORIDE 0.9% 100 ML (16:55)
[2019-03-21] MEDS: IOHEXOL 300MG/ML 150 ML BTL (16:55)
[2019-03-21] MEDS: HYDROCODONE/APAP (5/325) TAB PO (17:21)
[2019-03-21] MEDS: GUAIFENESIN 20 MG/ML 5ML CUP PO (20:31)
[2019-03-21] MEDS: ONDANSETRON 4 MG INJ IV (20:32)
[2019-03-22] MEDS: MEROPENEM 1 GM/50ML(PMX) 50 ML IVPB ×3 (01:34→17:01)
[2019-03-22] MEDS: HYDROCODONE/APAP (5/325) TAB PO ×4 (01:35→23:52)
[2019-03-22] MEDS: GUAIFENESIN 20 MG/ML 5ML CUP PO ×2 (04:59→21:53)
[2019-03-22] MEDS: morphine 2 MG INJ IV ×2 (04:59→08:59)
[2019-03-22] MEDS: ACETAMINOPHEN 325 MG TAB PO (05:46)
[2019-03-22] MEDS: FERROUS SULFATE (EC) 325 MG TAB PO (09:01)
[2019-03-22] MEDS: FAMOTIDINE 20 MG TAB PO ×2 (09:01→21:41)
[2019-03-22] MEDS: POLYETHYLENE GLYCOL 17 GM PACKET PO ×2 (09:04→21:40)
[2019-03-22] MEDS: HEPARIN 5,000 UNIT/1 ML VIAL SC ×2 (09:06→21:52)
[2019-03-22] MEDS: DIPHENHYDRAMINE 50 MG INJ IV (10:40)
[2019-03-22] MEDS: morphine 4 MG/ML VIAL IV ×3 (15:23→21:38)
[2019-03-23] MEDS: MEROPENEM 1 GM/50ML(PMX) 50 ML IVPB ×2 (00:57→09:35)
[2019-03-23] MEDS: morphine 4 MG/ML VIAL IV ×2 (00:59→04:41)
[2019-03-23 05:10] LABS: ADD MAN DIFF? NO
[2019-03-23 05:16] LABS: WHITE BLOOD COUNT 15.5 10^3/ul (4.8-10.8)
[2019-03-23 05:16] LABS: BASOPHILS % 0.1 % (0.0-2.0); EOSINOPHILS # 0.1 10^3/ul (0.0-0.5); EOSINOPHILS % 0.5 % (0.0-7.0); HEMATOCRIT 34.6 % (42.0-52.0); HEMOGLOBIN 10.5 g/dl (14.0-18.0); LYMPHOCYTES # 0.9 10^3/ul (0.8-2.9); LYMPHOCYTES % 5.7 % (15.0-51.0); MEAN CORPUSCULAR HEMOGLOBIN 23.9 pg (29.0-33.0); MEAN CORPUSCULAR HGB CONC 30.3 g/dl (32.0-37.0); MEAN CORPUSCULAR VOLUME 78.6 fl (82.0-101.0); MEAN PLATELET VOLUME 11.3 fl (7.4-10.4); MONOCYTE # 0.6 10^3/ul (0.3-0.9); NEUTROPHIL # 13.8 10^3/ul (1.6-7.5); NEUTROPHILS % 89.2 % (39.0-77.0); PLATELET COUNT 478 10^3/UL (140-415); RED CELL DISTRIBUTION WIDTH 21.8 % (11.5-14.5)
[2019-03-23 05:38] LABS: ANION GAP 8 (5-13); BLOOD UREA NITROGEN 18 mg/dl (7-20); CALCIUM 8.8 mg/dl (8.4-10.2); CARBON DIOXIDE 28 mmol/L (21-31); CHLORIDE 99 mmol/L (97-110); CREATININE 0.81 mg/dl (0.61-1.24); Estimated GFR > 60 mL/min (>60); GLUCOSE 99 mg/dl (70-220); POTASSIUM 4.4 mmol/L (3.5-5.1); SODIUM 135 mmol/L (135-144)
[2019-03-23] MEDS: POLYETHYLENE GLYCOL 17 GM PACKET PO ×3 (09:00→21:00)
[2019-03-23] MEDS: FERROUS SULFATE (EC) 325 MG TAB PO (09:00)
[2019-03-23] MEDS: HEPARIN 5,000 UNIT/1 ML VIAL SC ×2 (09:04→21:36)
[2019-03-23] MEDS: FAMOTIDINE 20 MG TAB PO ×2 (09:04→21:33)
[2019-03-23] MEDS ORDERED: LIDOCAINE 100 MG SYRINGE (09:29)
[2019-03-23] MEDS ORDERED: FENTAnyl 50 MCG/ML VIAL (09:29)
[2019-03-23] MEDS ORDERED: PROPOFOL 40 ML (09:29)
[2019-03-23] MEDS: DIPHENHYDRAMINE 50 MG INJ IV ×2 (10:33→22:20)
[2019-03-23] MEDS: morphine 2 MG INJ IV ×3 (12:20→21:47)
[2019-03-23] MEDS ORDERED: TOBRAMYCIN IV PER PHARMACY XX (16:00)
[2019-03-23] MEDS: LORATADINE 10 MG TAB PO (17:06)
[2019-03-23] MEDS: TOBRAMYCIN 500 MG in DEXTROSE 5% 100 ML IVPB (18:56)
[2019-03-23] MEDS: HYDROCODONE/APAP (5/325) TAB PO (19:42)
[2019-03-23] MEDS: GUAIFENESIN 20 MG/ML 5ML CUP PO (21:46)
[2019-03-23] MEDS: FAMOTIDINE 20 MG INJ IV (23:06)
[2019-03-24] MEDS: morphine 2 MG INJ IV ×2 (02:10→06:33)
[2019-03-24] MEDS: ACETAMINOPHEN 325 MG TAB PO (02:19)
[2019-03-24 03:22] LABS: TOBRAMYCIN, RANDOM 5.9 ug/ml
[2019-03-24] MEDS: GUAIFENESIN 20 MG/ML 5ML CUP PO (03:52)
[2019-03-24] MEDS: DIPHENHYDRAMINE 50 MG INJ IV ×3 (04:26→18:21)
[2019-03-24] MEDS: HYDROCODONE/APAP (5/325) TAB PO (04:31)
[2019-03-24 05:27] LABS: ADD MAN DIFF? NO
[2019-03-24 05:33] LABS: WHITE BLOOD COUNT 15.5 10^3/ul (4.8-10.8)
[2019-03-24 05:33] LABS: BASOPHILS % 0.1 % (0.0-2.0); EOSINOPHILS # 0.1 10^3/ul (0.0-0.5); EOSINOPHILS % 0.5 % (0.0-7.0); HEMATOCRIT 34.9 % (42.0-52.0); HEMOGLOBIN 10.5 g/dl (14.0-18.0); LYMPHOCYTES # 1.1 10^3/ul (0.8-2.9); LYMPHOCYTES % 6.8 % (15.0-51.0); MEAN CORPUSCULAR HEMOGLOBIN 23.9 pg (29.0-33.0); MEAN CORPUSCULAR HGB CONC 30.1 g/dl (32.0-37.0); MEAN CORPUSCULAR VOLUME 79.5 fl (82.0-101.0); MEAN PLATELET VOLUME 11.3 fl (7.4-10.4); MONOCYTE # 0.7 10^3/ul (0.3-0.9); MONOCYTES % 4.3 % (0.0-11.0); NEUTROPHIL # 13.6 10^3/ul (1.6-7.5); NEUTROPHILS % 87.8 % (39.0-77.0); PLATELET COUNT 544 10^3/UL (140-415); RED BLOOD COUNT 4.39 10^6/ul (4.70-6.10); RED CELL DISTRIBUTION WIDTH 21.7 % (11.5-14.5)
[2019-03-24 05:56] LABS: ANION GAP 11 (5-13); BLOOD UREA NITROGEN 16 mg/dl (7-20); CALCIUM 8.8 mg/dl (8.4-10.2); CARBON DIOXIDE 28 mmol/L (21-31); CHLORIDE 96 mmol/L (97-110); CREATININE 0.87 mg/dl (0.61-1.24); Estimated GFR > 60 mL/min (>60); GLUCOSE 106 mg/dl (70-220); POTASSIUM 4.8 mmol/L (3.5-5.1); SODIUM 135 mmol/L (135-144)
[2019-03-24] MEDS: FAMOTIDINE 20 MG TAB PO ×2 (09:32→21:20)
[2019-03-24] MEDS: LORATADINE 10 MG TAB PO (09:32)
[2019-03-24] MEDS: POLYETHYLENE GLYCOL 17 GM PACKET PO ×2 (09:32→21:20)
[2019-03-24] MEDS: FERROUS SULFATE (EC) 325 MG TAB PO (09:32)
[2019-03-24] MEDS: HEPARIN 5,000 UNIT/1 ML VIAL SC ×2 (09:39→21:30)
[2019-03-24] MEDS: ZYVOX 600 MG TAB PO ×2 (10:27→21:20)
[2019-03-24] MEDS: morphine 4 MG/ML VIAL IV (10:27)
[2019-03-24] MEDS ORDERED: OXYCODONE/ACETAMINOPHEN (5/325) TAB PO (10:30)
[2019-03-24] MEDS: HYDROmorphONE 1 MG/ML SYG IV ×3 (15:06→21:20)
[2019-03-24] MEDS: FUROSEMIDE 20 MG INJ IV (15:08)
[2019-03-24 16:00] LABS: INR 1.46; PROTIME 17.8 Sec (11.9-14.9); PT RATIO 1.4
[2019-03-24] MEDS: TOBRAMYCIN 500 MG in DEXTROSE 5% 100 ML IVPB (18:22)
[2019-03-24] MEDS: METHYLPREDNISOLONE 125 MG INJ IV (18:31)
[2019-03-24] MEDS: KETOROLAC 30 MG INJ IV (18:31)
[2019-03-25] MEDS: HYDROmorphONE 0.2 MG/ML PCA IV ×5 (00:20→20:37)
[2019-03-25] MEDS: DIPHENHYDRAMINE 50 MG INJ IV (00:22)
[2019-03-25] MEDS: METHYLPREDNISOLONE 125 MG INJ IV ×4 (00:22→17:56)
[2019-03-25 05:38] LABS: WHITE BLOOD COUNT 8.8 10^3/ul (4.8-10.8)
[2019-03-25 05:38] LABS: ABNORMAL IP MESSAGE 1; HEMATOCRIT 32.8 % (42.0-52.0); HEMOGLOBIN 9.9 g/dl (14.0-18.0); MEAN CORPUSCULAR HEMOGLOBIN 23.8 pg (29.0-33.0); MEAN CORPUSCULAR HGB CONC 30.2 g/dl (32.0-37.0); MEAN CORPUSCULAR VOLUME 78.8 fl (82.0-101.0); MEAN PLATELET VOLUME 10.8 fl (7.4-10.4); PLATELET COUNT 467 10^3/UL (140-415); POSITIVE DIFF @See below; RED BLOOD COUNT 4.16 10^6/ul (4.70-6.10)
[2019-03-25 05:47] LABS: ADD MAN DIFF? YES
[2019-03-25] MEDS: KETOROLAC 30 MG INJ IV ×4 (05:56→17:56)
[2019-03-25 06:13] LABS: ANION GAP 10 (5-13); BLOOD UREA NITROGEN 29 mg/dl (7-20); CALCIUM 8.8 mg/dl (8.4-10.2); CARBON DIOXIDE 28 mmol/L (21-31); CHLORIDE 98 mmol/L (97-110); CREATININE 0.92 mg/dl (0.61-1.24); Estimated GFR > 60 mL/min (>60); GLUCOSE 209 mg/dl (70-220); POTASSIUM 4.9 mmol/L (3.5-5.1); SODIUM 136 mmol/L (135-144)
[2019-03-25 07:24] LABS: ANISOCYTOSIS 2+ (0-0); BURR CELLS 1+ (0-0); LYMPHOCYTES #M 0.1 10^3/ul (0.8-2.9); LYMPHOCYTES % (M) 2 % (15-51); MICROCYTOSIS 2+ (0-0); OVALOCYTES 1+ (0-0); PLATELET ESTIMATE NORMAL; POIKILOCYTOSIS 2+ (0-0); POLYCHROMASIA 3+ (0-0); SEGMENTED NEUTROPHILS (M) % 98 % (39-77); SMUDGE%M 5 % (0-0); SPHEROCYTES 1+ (0-0)
[2019-03-25] MEDS: FERROUS SULFATE (EC) 325 MG TAB PO (09:00)
[2019-03-25] MEDS: HEPARIN 5,000 UNIT/1 ML VIAL SC ×2 (09:00→21:44)
[2019-03-25] MEDS: FAMOTIDINE 20 MG TAB PO ×2 (09:00→21:43)
[2019-03-25] MEDS: ZYVOX 600 MG TAB PO ×2 (09:00→21:43)
[2019-03-25] MEDS: LORATADINE 10 MG TAB PO (09:00)
[2019-03-25] MEDS: POLYETHYLENE GLYCOL 17 GM PACKET PO ×2 (09:00→21:43)
[2019-03-25] MEDS: LIDOCAINE 1% (MDV) 20 ML INJ (09:50)
[2019-03-25] MEDS: FENTAnyl 50 MCG/ML VIAL (09:50)
[2019-03-25] MEDS: TOBRAMYCIN 500 MG in DEXTROSE 5% 100 ML IVPB (17:59)
[2019-03-26] MEDS: HYDROmorphONE 0.2 MG/ML PCA IV ×6 (00:51→21:36)
[2019-03-26] MEDS: METHYLPREDNISOLONE 125 MG INJ IV ×4 (05:58→17:43)
[2019-03-26] MEDS: KETOROLAC 30 MG INJ IV ×4 (05:58→17:42)
[2019-03-26 06:23] LABS: ADD MAN DIFF? NO
[2019-03-26 06:33] LABS: ABNORMAL IP MESSAGE 1; BASOPHILS % 0.1 % (0.0-2.0); EOSINOPHILS % 0.1 % (0.0-7.0); HEMATOCRIT 32.6 % (42.0-52.0); HEMOGLOBIN 9.8 g/dl (14.0-18.0); LYMPHOCYTES # 0.4 10^3/ul (0.8-2.9); LYMPHOCYTES % 3.3 % (15.0-51.0); MEAN CORPUSCULAR HEMOGLOBIN 23.8 pg (29.0-33.0); MEAN CORPUSCULAR HGB CONC 30.1 g/dl (32.0-37.0); MEAN CORPUSCULAR VOLUME 79.1 fl (82.0-101.0); MEAN PLATELET VOLUME 10.9 fl (7.4-10.4); MONOCYTE # 0.6 10^3/ul (0.3-0.9); MONOCYTES % 4.2 % (0.0-11.0); NEUTROPHIL # 12.1 10^3/ul (1.6-7.5); NEUTROPHILS % 91.8 % (39.0-77.0); PLATELET COUNT 638 10^3/UL (140-415); POSITIVE DIFF @See below; RED BLOOD COUNT 4.12 10^6/ul (4.70-6.10); RED CELL DISTRIBUTION WIDTH 21.3 % (11.5-14.5)
[2019-03-26 06:33] LABS: WHITE BLOOD COUNT 13.1 10^3/ul (4.8-10.8)
[2019-03-26 06:54] LABS: ANION GAP 10 (5-13); BLOOD UREA NITROGEN 47 mg/dl (7-20); CALCIUM 8.8 mg/dl (8.4-10.2); CARBON DIOXIDE 28 mmol/L (21-31); CHLORIDE 98 mmol/L (97-110); CREATININE 1.33 mg/dl (0.61-1.24); Estimated GFR 57 mL/min (>60); GLUCOSE 133 mg/dl (70-220); POTASSIUM 5.1 mmol/L (3.5-5.1); SODIUM 136 mmol/L (135-144)
[2019-03-26] MEDS: FAMOTIDINE 20 MG TAB PO ×2 (08:39→21:28)
[2019-03-26] MEDS: LORATADINE 10 MG TAB PO (08:39)
[2019-03-26] MEDS: ZYVOX 600 MG TAB PO ×2 (08:39→21:28)
[2019-03-26] MEDS: FERROUS SULFATE (EC) 325 MG TAB PO (08:39)
[2019-03-26] MEDS: POLYETHYLENE GLYCOL 17 GM PACKET PO ×2 (08:40→21:28)
[2019-03-26] MEDS: HEPARIN 5,000 UNIT/1 ML VIAL SC ×2 (08:43→21:31)
[2019-03-26] MEDS: TOBRAMYCIN 500 MG in DEXTROSE 5% 100 ML IVPB (18:12)
[2019-03-26] MEDS: DIPHENHYDRAMINE 50 MG INJ IV (18:24)
[2019-03-26] MEDS: metroNIDAZOLE 500 MG/NS (PMX) 100 ML IVPB (21:28)
[2019-03-27] MEDS: METHYLPREDNISOLONE 125 MG INJ IV ×4 (00:51→17:35)
[2019-03-27] MEDS: HYDROmorphONE 0.2 MG/ML PCA IV ×5 (02:18→20:18)
[2019-03-27] MEDS: metroNIDAZOLE 500 MG/NS (PMX) 100 ML IVPB ×3 (05:18→21:05)
[2019-03-27] MEDS: KETOROLAC 30 MG INJ IV ×3 (05:19→12:00)
[2019-03-27 06:09] LABS: ADD MAN DIFF? NO
[2019-03-27 06:12] LABS: WHITE BLOOD COUNT 8.8 10^3/ul (4.8-10.8)
[2019-03-27 06:12] LABS: ABNORMAL IP MESSAGE 1; HEMATOCRIT 31.5 % (42.0-52.0); HEMOGLOBIN 9.5 g/dl (14.0-18.0); LYMPHOCYTES # 0.3 10^3/ul (0.8-2.9); LYMPHOCYTES % 3.7 % (15.0-51.0); MEAN CORPUSCULAR HEMOGLOBIN 24.1 pg (29.0-33.0); MEAN CORPUSCULAR HGB CONC 30.2 g/dl (32.0-37.0); MEAN CORPUSCULAR VOLUME 79.7 fl (82.0-101.0); MEAN PLATELET VOLUME 10.6 fl (7.4-10.4); MONOCYTE # 0.3 10^3/ul (0.3-0.9); MONOCYTES % 2.9 % (0.0-11.0); NEUTROPHIL # 8.2 10^3/ul (1.6-7.5); NEUTROPHILS % 93.1 % (39.0-77.0); PLATELET COUNT 614 10^3/UL (140-415); POSITIVE DIFF @See below; RED BLOOD COUNT 3.95 10^6/ul (4.70-6.10)
[2019-03-27 06:41] LABS: ANION GAP 7 (5-13); BLOOD UREA NITROGEN 51 mg/dl (7-20); CALCIUM 8.7 mg/dl (8.4-10.2); CARBON DIOXIDE 29 mmol/L (21-31); CHLORIDE 99 mmol/L (97-110); CREATININE 1.03 mg/dl (0.61-1.24); Estimated GFR > 60 mL/min (>60); GLUCOSE 148 mg/dl (70-220); POTASSIUM 5.1 mmol/L (3.5-5.1); SODIUM 135 mmol/L (135-144)
[2019-03-27] MEDS: FERROUS SULFATE (EC) 325 MG TAB PO (08:46)
[2019-03-27] MEDS: LORATADINE 10 MG TAB PO (08:46)
[2019-03-27] MEDS: ZYVOX 600 MG TAB PO ×2 (08:47→20:19)
[2019-03-27] MEDS: POLYETHYLENE GLYCOL 17 GM PACKET PO ×2 (08:47→20:19)
[2019-03-27] MEDS: FAMOTIDINE 20 MG TAB PO ×2 (08:47→20:19)
[2019-03-27] MEDS: HEPARIN 5,000 UNIT/1 ML VIAL SC ×2 (08:49→20:22)
[2019-03-27] MEDS: TOBRAMYCIN 500 MG in DEXTROSE 5% 100 ML IVPB (17:35)
[2019-03-28] MEDS: METHYLPREDNISOLONE 125 MG INJ IV ×4 (00:15→17:31)
[2019-03-28] MEDS: HYDROmorphONE 0.2 MG/ML PCA IV ×4 (00:50→20:01)
[2019-03-28] MEDS: metroNIDAZOLE 500 MG/NS (PMX) 100 ML IVPB ×3 (05:03→21:39)
[2019-03-28 06:05] LABS: ADD MAN DIFF? NO
[2019-03-28 06:20] LABS: ABNORMAL IP MESSAGE 1; HEMATOCRIT 32.6 % (42.0-52.0); HEMOGLOBIN 9.8 g/dl (14.0-18.0); LYMPHOCYTES # 0.3 10^3/ul (0.8-2.9); LYMPHOCYTES % 5.6 % (15.0-51.0); MEAN CORPUSCULAR HEMOGLOBIN 23.6 pg (29.0-33.0); MEAN CORPUSCULAR HGB CONC 30.1 g/dl (32.0-37.0); MEAN CORPUSCULAR VOLUME 78.4 fl (82.0-101.0); MEAN PLATELET VOLUME 10.8 fl (7.4-10.4); MONOCYTE # 0.2 10^3/ul (0.3-0.9); NEUTROPHIL # 5.4 10^3/ul (1.6-7.5); NEUTROPHILS % 89.9 % (39.0-77.0); PLATELET COUNT 644 10^3/UL (140-415); POSITIVE DIFF @See below; RED BLOOD COUNT 4.16 10^6/ul (4.70-6.10); RED CELL DISTRIBUTION WIDTH 21.2 % (11.5-14.5)
[2019-03-28 06:20] LABS: WHITE BLOOD COUNT 6.1 10^3/ul (4.8-10.8)
[2019-03-28 06:50] LABS: ANION GAP 10 (5-13); BLOOD UREA NITROGEN 38 mg/dl (7-20); CARBON DIOXIDE 30 mmol/L (21-31); CHLORIDE 99 mmol/L (97-110); CREATININE 0.89 mg/dl (0.61-1.24); Estimated GFR > 60 mL/min (>60); GLUCOSE 179 mg/dl (70-220); POTASSIUM 5.5 mmol/L (3.5-5.1); SODIUM 139 mmol/L (135-144)
[2019-03-28] MEDS: POLYETHYLENE GLYCOL 17 GM PACKET PO ×2 (08:42→21:40)
[2019-03-28] MEDS: HEPARIN 5,000 UNIT/1 ML VIAL SC ×2 (08:42→21:42)
[2019-03-28] MEDS: ZYVOX 600 MG TAB PO (08:42)
[2019-03-28] MEDS: FAMOTIDINE 20 MG TAB PO ×2 (08:42→21:39)
[2019-03-28] MEDS: FERROUS SULFATE (EC) 325 MG TAB PO (08:42)
[2019-03-28] MEDS: LORATADINE 10 MG TAB PO (08:42)
[2019-03-28] MEDS: NA POLYST SULFON 15 GM/60 ML BTL PO (11:35)
[2019-03-28] MEDS: TOBRAMYCIN 500 MG in DEXTROSE 5% 100 ML IVPB (17:31)
[2019-03-28] MEDS ORDERED: HYDROmorphONE 0.5 MG/0.5 ML SYG IV (23:30)
[2019-03-29] MEDS: METHYLPREDNISOLONE 125 MG INJ IV ×3 (00:09→20:55)
[2019-03-29] MEDS: metroNIDAZOLE 500 MG/NS (PMX) 100 ML IVPB (05:33)
[2019-03-29 05:44] LABS: ADD MAN DIFF? NO
[2019-03-29 05:48] LABS: ABNORMAL IP MESSAGE 1; HEMATOCRIT 32.2 % (42.0-52.0); HEMOGLOBIN 9.8 g/dl (14.0-18.0); LYMPHOCYTES # 0.4 10^3/ul (0.8-2.9); LYMPHOCYTES % 9.4 % (15.0-51.0); MEAN CORPUSCULAR HEMOGLOBIN 23.6 pg (29.0-33.0); MEAN CORPUSCULAR HGB CONC 30.4 g/dl (32.0-37.0); MEAN CORPUSCULAR VOLUME 77.6 fl (82.0-101.0); MEAN PLATELET VOLUME 10.2 fl (7.4-10.4); MONOCYTE # 0.2 10^3/ul (0.3-0.9); MONOCYTES % 3.9 % (0.0-11.0); NEUTROPHIL # 3.3 10^3/ul (1.6-7.5); NEUTROPHILS % 86.2 % (39.0-77.0); PLATELET COUNT 544 10^3/UL (140-415); POSITIVE DIFF @See below; RED BLOOD COUNT 4.15 10^6/ul (4.70-6.10)
[2019-03-29 05:48] LABS: WHITE BLOOD COUNT 3.8 10^3/ul (4.8-10.8)
[2019-03-29 06:03] LABS: PHOSPHORUS 2.9 mg/dl (2.5-4.9)
[2019-03-29 06:03] LABS: MAGNESIUM 1.7 mg/dl (1.7-2.5)
[2019-03-29 06:08] LABS: ANION GAP 6 (5-13); BLOOD UREA NITROGEN 27 mg/dl (7-20); CALCIUM 8.6 mg/dl (8.4-10.2); CARBON DIOXIDE 29 mmol/L (21-31); CHLORIDE 103 mmol/L (97-110); CREATININE 0.67 mg/dl (0.61-1.24); Estimated GFR > 60 mL/min (>60); GLUCOSE 179 mg/dl (70-220); POTASSIUM 4.1 mmol/L (3.5-5.1); SODIUM 138 mmol/L (135-144)
[2019-03-29] MEDS: ONDANSETRON 4 MG INJ IV (06:22)
[2019-03-29] MEDS: POLYETHYLENE GLYCOL 17 GM PACKET PO ×2 (09:17→20:55)
[2019-03-29] MEDS: FAMOTIDINE 20 MG TAB PO ×2 (09:17→20:55)
[2019-03-29] MEDS: FERROUS SULFATE (EC) 325 MG TAB PO (09:17)
[2019-03-29] MEDS: LORATADINE 10 MG TAB PO (09:17)
[2019-03-29] MEDS: HEPARIN 5,000 UNIT/1 ML VIAL SC ×2 (09:22→21:01)
[2019-03-29] MEDS: TOBRAMYCIN 500 MG in DEXTROSE 5% 100 ML IVPB (18:20)
[2019-03-30 05:33] LABS: ADD MAN DIFF? NO
[2019-03-30 05:39] LABS: ABNORMAL IP MESSAGE 1; BASOPHILS % 0.2 % (0.0-2.0); HEMATOCRIT 33.1 % (42.0-52.0); HEMOGLOBIN 10.4 g/dl (14.0-18.0); LYMPHOCYTES # 0.5 10^3/ul (0.8-2.9); LYMPHOCYTES % 9.6 % (15.0-51.0); MEAN CORPUSCULAR HEMOGLOBIN 24.3 pg (29.0-33.0); MEAN CORPUSCULAR HGB CONC 31.4 g/dl (32.0-37.0); MEAN CORPUSCULAR VOLUME 77.3 fl (82.0-101.0); MEAN PLATELET VOLUME 10.2 fl (7.4-10.4); MONOCYTE # 0.2 10^3/ul (0.3-0.9); MONOCYTES % 4.7 % (0.0-11.0); NEUTROPHILS % 84.7 % (39.0-77.0); PLATELET COUNT 527 10^3/UL (140-415); POSITIVE DIFF @See below; RED BLOOD COUNT 4.28 10^6/ul (4.70-6.10); RED CELL DISTRIBUTION WIDTH 20.9 % (11.5-14.5)
[2019-03-30 05:39] LABS: WHITE BLOOD COUNT 4.7 10^3/ul (4.8-10.8)
[2019-03-30 06:14] LABS: PHOSPHORUS 3.5 mg/dl (2.5-4.9)
[2019-03-30 06:14] LABS: MAGNESIUM 1.8 mg/dl (1.7-2.5)
[2019-03-30 06:37] LABS: ANION GAP 9 (5-13); BLOOD UREA NITROGEN 28 mg/dl (7-20); CALCIUM 8.9 mg/dl (8.4-10.2); CARBON DIOXIDE 33 mmol/L (21-31); CHLORIDE 100 mmol/L (97-110); CREATININE 0.81 mg/dl (0.61-1.24); Estimated GFR > 60 mL/min (>60); GLUCOSE 189 mg/dl (70-220); POTASSIUM 4.4 mmol/L (3.5-5.1); SODIUM 142 mmol/L (135-144)
[2019-03-30] MEDS: FERROUS SULFATE (EC) 325 MG TAB PO (09:16)
[2019-03-30] MEDS: FAMOTIDINE 20 MG TAB PO ×2 (09:16→21:17)
[2019-03-30] MEDS: METHYLPREDNISOLONE 125 MG INJ IV ×2 (09:16→21:17)
[2019-03-30] MEDS: LORATADINE 10 MG TAB PO (09:16)
[2019-03-30] MEDS: POLYETHYLENE GLYCOL 17 GM PACKET PO ×2 (09:16→21:16)
[2019-03-30] MEDS: HEPARIN 5,000 UNIT/1 ML VIAL SC ×2 (09:19→21:20)
[2019-03-30] MEDS: TOBRAMYCIN 500 MG in DEXTROSE 5% 100 ML IVPB (18:09)
[2019-03-31 05:43] LABS: ADD MAN DIFF? NO
[2019-03-31 05:51] LABS: WHITE BLOOD COUNT 6.9 10^3/ul (4.8-10.8)
[2019-03-31 05:51] LABS: BASOPHILS % 0.1 % (0.0-2.0); HEMATOCRIT 33.7 % (42.0-52.0); HEMOGLOBIN 10.3 g/dl (14.0-18.0); LYMPHOCYTES # 0.8 10^3/ul (0.8-2.9); LYMPHOCYTES % 11.1 % (15.0-51.0); MEAN CORPUSCULAR HEMOGLOBIN 23.6 pg (29.0-33.0); MEAN CORPUSCULAR HGB CONC 30.6 g/dl (32.0-37.0); MEAN CORPUSCULAR VOLUME 77.1 fl (82.0-101.0); MEAN PLATELET VOLUME 10.2 fl (7.4-10.4); MONOCYTE # 0.3 10^3/ul (0.3-0.9); MONOCYTES % 4.4 % (0.0-11.0); NEUTROPHIL # 5.7 10^3/ul (1.6-7.5); NEUTROPHILS % 83.4 % (39.0-77.0); PLATELET COUNT 480 10^3/UL (140-415); RED BLOOD COUNT 4.37 10^6/ul (4.70-6.10); RED CELL DISTRIBUTION WIDTH 21.2 % (11.5-14.5)
[2019-03-31 06:14] LABS: ANION GAP 7 (5-13); BLOOD UREA NITROGEN 33 mg/dl (7-20); CALCIUM 8.8 mg/dl (8.4-10.2); CARBON DIOXIDE 32 mmol/L (21-31); CHLORIDE 99 mmol/L (97-110); CREATININE 0.71 mg/dl (0.61-1.24); Estimated GFR > 60 mL/min (>60); GLUCOSE 173 mg/dl (70-220); POTASSIUM 4.1 mmol/L (3.5-5.1); SODIUM 138 mmol/L (135-144)
[2019-03-31 06:15] LABS: MAGNESIUM 1.8 mg/dl (1.7-2.5)
[2019-03-31] MEDS: FERROUS SULFATE (EC) 325 MG TAB PO (09:07)
[2019-03-31] MEDS: LORATADINE 10 MG TAB PO (09:07)
[2019-03-31] MEDS: FAMOTIDINE 20 MG TAB PO ×2 (09:07→22:10)
[2019-03-31] MEDS: HEPARIN 5,000 UNIT/1 ML VIAL SC ×2 (09:09→22:24)
[2019-03-31] MEDS: POLYETHYLENE GLYCOL 17 GM PACKET PO ×2 (09:09→22:10)
[2019-03-31] MEDS: METHYLPREDNISOLONE 125 MG INJ IV ×2 (09:09→22:10)
[2019-03-31] MEDS: TOBRAMYCIN 500 MG in DEXTROSE 5% 100 ML IVPB (17:51)
[2019-03-31] MEDS: HYDROCODONE/APAP (5/325) TAB PO (22:10)
[2019-04-01] MEDS: POLYETHYLENE GLYCOL 17 GM PACKET PO ×2 (09:01→20:49)
[2019-04-01] MEDS: FERROUS SULFATE (EC) 325 MG TAB PO (09:01)
[2019-04-01] MEDS: LORATADINE 10 MG TAB PO (09:01)
[2019-04-01] MEDS: METHYLPREDNISOLONE 125 MG INJ IV ×2 (09:01→20:50)
[2019-04-01] MEDS: FAMOTIDINE 20 MG TAB PO ×2 (09:01→20:48)
[2019-04-01] MEDS: HEPARIN 5,000 UNIT/1 ML VIAL SC ×2 (09:03→20:54)
[2019-04-01] MEDS: TOBRAMYCIN 500 MG in DEXTROSE 5% 100 ML IVPB (17:41)
[2019-04-02 06:05] LABS: CREATININE 0.75 mg/dl (0.61-1.24)
[2019-04-02 06:05] LABS: BLOOD UREA NITROGEN 28 mg/dl (7-20)
[2019-04-02] MEDS: METHYLPREDNISOLONE 125 MG INJ IV ×2 (08:19→21:10)
[2019-04-02] MEDS: FERROUS SULFATE (EC) 325 MG TAB PO (08:19)
[2019-04-02] MEDS: POLYETHYLENE GLYCOL 17 GM PACKET PO ×2 (08:19→21:10)
[2019-04-02] MEDS: LORATADINE 10 MG TAB PO (08:19)
[2019-04-02] MEDS: FAMOTIDINE 20 MG TAB PO ×2 (08:19→21:10)
[2019-04-02] MEDS: HEPARIN 5,000 UNIT/1 ML VIAL SC ×2 (08:20→21:13)
[2019-04-02] MEDS: TOBRAMYCIN 500 MG in DEXTROSE 5% 100 ML IVPB (17:41)
[2019-04-03] MEDS: FERROUS SULFATE (EC) 325 MG TAB PO (08:12)
[2019-04-03] MEDS: LORATADINE 10 MG TAB PO (08:12)
[2019-04-03] MEDS: FAMOTIDINE 20 MG TAB PO (08:12)
[2019-04-03] MEDS: METHYLPREDNISOLONE 125 MG INJ IV (08:13)
[2019-04-03] MEDS: POLYETHYLENE GLYCOL 17 GM PACKET PO (08:13)
[2019-04-03] MEDS: HEPARIN 5,000 UNIT/1 ML VIAL SC (08:16)
[2019-04-03] MEDS: TOBRAMYCIN 500 MG in DEXTROSE 5% 100 ML IVPB ×2 (17:00→18:11)
== END 2019-04-03 19:25 | disposition home health service (06) | DRG 872 ==
LOC: E/R 17:29 → ICU 23:21 → 2NE 03-15 16:40
PROC: B246ZZ4 Ultrasonography of Right and Left Heart, Transesophageal (ICD-10-PCS; 2019-03-23 10:00)
PROC: 079P30Z Drainage of Spleen with Drainage Device, Percutaneous Approach (ICD-10-PCS; principal; 2019-03-23 11:00)
DX: A41.51 Sepsis due to Escherichia coli [E. coli] (principal); J90 Pleural effusion, not elsewhere classified; D73.3 Abscess of spleen; D50.9 Iron deficiency anemia, unspecified; R16.1 Splenomegaly, not elsewhere classified; L50.9 Urticaria, unspecified; R00.1 Bradycardia, unspecified; E66.9 Obesity, unspecified; Z68.32 Body mass index [BMI] 32.0-32.9, adult; Z98.890 Other specified postprocedural states
CPT/HCPCS: 71045; 74150; 74177; 74178; 76775; 77012; 80048; 80053; 80061; 80076; 80200; 82565; 82728; 83036; 83540; 83605; 83735; 84100; 84439; 84443; 84484; 84520; 85025; 85610; 85730; 87040-91; 87070; 87081; 87086; 92610; 93005; 93306; 93312; 93320; 93325; 94644; 96365; 96366; 96368; 97110; 97116; 97162; 97530; 99285-25

== ENCOUNTER 2019-04-06 10:06 | Emergency (ER) | payer OTHER | END 2019-04-06 12:03 | disposition home or self-care (01) | LOC: FTE 12:03 | DX: R21 Rash and other nonspecific skin eruption (principal); Z97.8 Presence of other specified devices | CPT/HCPCS: 99283; Z7502 ==

== ENCOUNTER 2019-04-11 10:13 | Inpatient (IN) | payer OTHER ==
[2019-04-11 12:04] LABS: ADD MAN DIFF? NO
[2019-04-11] MEDS: SOD CHLORIDE 0.9% 1,000 ML IV (12:06)
[2019-04-11 12:12] LABS: ABNORMAL IP MESSAGE 1; BASOPHIL # 0.1 10^3/ul (0.0-0.1); BASOPHILS % 0.3 % (0.0-2.0); EOSINOPHILS # 0.2 10^3/ul (0.0-0.5); EOSINOPHILS % 1.2 % (0.0-7.0); HEMATOCRIT 39.2 % (42.0-52.0); HEMOGLOBIN 12.2 g/dl (14.0-18.0); LYMPHOCYTES # 0.9 10^3/ul (0.8-2.9); LYMPHOCYTES % 5.5 % (15.0-51.0); MEAN CORPUSCULAR HEMOGLOBIN 25.1 pg (29.0-33.0); MEAN CORPUSCULAR HGB CONC 31.1 g/dl (32.0-37.0); MEAN CORPUSCULAR VOLUME 80.5 fl (82.0-101.0); MEAN PLATELET VOLUME 10.8 fl (7.4-10.4); MONOCYTE # 0.7 10^3/ul (0.3-0.9); MONOCYTES % 4.4 % (0.0-11.0); NEUTROPHIL # 14.1 10^3/ul (1.6-7.5); NEUTROPHILS % 87.7 % (39.0-77.0); PLATELET COUNT 236 10^3/UL (140-415); POSITIVE DIFF @See below; RED BLOOD COUNT 4.87 10^6/ul (4.70-6.10); RED CELL DISTRIBUTION WIDTH 24.8 % (11.5-14.5)
[2019-04-11 12:12] LABS: WHITE BLOOD COUNT 16.1 10^3/ul (4.8-10.8)
[2019-04-11 12:27] LABS: ALANINE AMINOTRANSFERASE 57 IU/L (13-69); ALBUMIN 3.9 g/dl (3.3-4.9); ALBUMIN/GLOBULIN RATIO 1.18; ALKALINE PHOSPHATASE 84 IU/L (42-121); ANION GAP 9 (5-13); ASPARTATE AMINO TRANSFERASE 22 IU/L (15-46); BILIRUBIN,INDIRECT 0.7 mg/dl (0-1.1); BILIRUBIN,TOTAL 0.7 mg/dl (0.2-1.3); BLOOD UREA NITROGEN 22 mg/dl (7-20); CALCIUM 9.3 mg/dl (8.4-10.2); CARBON DIOXIDE 24 mmol/L (21-31); CHLORIDE 106 mmol/L (97-110); CREATININE 0.62 mg/dl (0.61-1.24); Estimated GFR > 60 mL/min (>60); GLUCOSE 77 mg/dl (70-220); POTASSIUM 4.1 mmol/L (3.5-5.1); SODIUM 139 mmol/L (135-144); TOTAL PROTEIN 7.2 g/dl (6.1-8.1)
[2019-04-11] MEDS: SOD CHLORIDE 0.9% 100 ML (13:21)
[2019-04-11] MEDS: IOHEXOL 300MG/ML 150 ML BTL (13:21)
[2019-04-11] MEDS ORDERED: ACETAMINOPHEN 325 MG TAB PO ×2 (14:30→16:30)
[2019-04-11] MEDS ORDERED: ONDANSETRON 4 MG INJ IV (14:30)
[2019-04-11] MEDS: AZTREONAM 1 GM/NS (PMX) 50 ML IVPB (15:43)
[2019-04-11] MEDS: VANCOMYCIN 1 GM (PMX) 250 ML IVPB (16:16)
[2019-04-11] MEDS ORDERED: TOBRAMYCIN IV PER PHARMACY XX (16:30)
[2019-04-11] MEDS ORDERED: NACL 0.9% 3 ML SYG IV (16:30)
[2019-04-11 17:45] LABS: C-REACTIVE PROTEIN 0.6 mg/dl (0.0-0.9)
[2019-04-11 17:58] LABS: ERYTHROCYTE SEDIMENTATION RATE 2 mm/Hr (0-20)
[2019-04-11] MEDS: TOBRAMYCIN 500 MG in DEXTROSE 5% 100 ML IVPB (21:48)
[2019-04-11] MEDS: FERROUS FUMARATE (SR) TAB PO (21:48)
[2019-04-12 06:22] LABS: ADD MAN DIFF? NO
[2019-04-12 06:27] LABS: WHITE BLOOD COUNT 10.2 10^3/ul (4.8-10.8)
[2019-04-12 06:27] LABS: ABNORMAL IP MESSAGE 1; BASOPHILS % 0.3 % (0.0-2.0); EOSINOPHILS # 0.2 10^3/ul (0.0-0.5); EOSINOPHILS % 2.1 % (0.0-7.0); HEMATOCRIT 36.4 % (42.0-52.0); HEMOGLOBIN 11.3 g/dl (14.0-18.0); LYMPHOCYTES # 0.7 10^3/ul (0.8-2.9); LYMPHOCYTES % 6.7 % (15.0-51.0); MEAN CORPUSCULAR HEMOGLOBIN 24.9 pg (29.0-33.0); MEAN CORPUSCULAR VOLUME 80.2 fl (82.0-101.0); MEAN PLATELET VOLUME 10.4 fl (7.4-10.4); MONOCYTE # 0.5 10^3/ul (0.3-0.9); MONOCYTES % 4.5 % (0.0-11.0); NEUTROPHIL # 8.7 10^3/ul (1.6-7.5); NEUTROPHILS % 85.9 % (39.0-77.0); PLATELET COUNT 205 10^3/UL (140-415); POSITIVE DIFF @See below; RED BLOOD COUNT 4.54 10^6/ul (4.70-6.10)
[2019-04-12 06:54] LABS: ALANINE AMINOTRANSFERASE 67 IU/L (13-69); ALBUMIN 3.3 g/dl (3.3-4.9); ALBUMIN/GLOBULIN RATIO 1.06; ALKALINE PHOSPHATASE 73 IU/L (42-121); ANION GAP 9 (5-13); ASPARTATE AMINO TRANSFERASE 31 IU/L (15-46); BILIRUBIN,INDIRECT 0.8 mg/dl (0-1.1); BILIRUBIN,TOTAL 0.8 mg/dl (0.2-1.3); BLOOD UREA NITROGEN 16 mg/dl (7-20); CALCIUM 9.2 mg/dl (8.4-10.2); CARBON DIOXIDE 26 mmol/L (21-31); CHLORIDE 107 mmol/L (97-110); CREATININE 0.75 mg/dl (0.61-1.24); Estimated GFR > 60 mL/min (>60); GLUCOSE 85 mg/dl (70-220); POTASSIUM 3.8 mmol/L (3.5-5.1); SODIUM 142 mmol/L (135-144); TOTAL PROTEIN 6.4 g/dl (6.1-8.1)
[2019-04-12 06:55] LABS: PHOSPHORUS 3.9 mg/dl (2.5-4.9)
[2019-04-12 06:55] LABS: MAGNESIUM 1.7 mg/dl (1.7-2.5)
[2019-04-12] MEDS: FERROUS FUMARATE (SR) TAB PO ×2 (09:35→22:37)
[2019-04-12] MEDS: ENOXAPARIN 40 MG/0.4 ML SYG SC (09:35)
[2019-04-12] MEDS: DOCUSATE SODIUM 100 MG CAP PO ×2 (14:39→22:37)
[2019-04-12] MEDS: TOBRAMYCIN 500 MG in DEXTROSE 5% 100 ML IVPB (17:40)
[2019-04-13 07:28] LABS: ADD MAN DIFF? NO
[2019-04-13 07:38] LABS: ABNORMAL IP MESSAGE 1; BASOPHILS % 0.3 % (0.0-2.0); EOSINOPHILS # 0.3 10^3/ul (0.0-0.5); EOSINOPHILS % 3.6 % (0.0-7.0); HEMATOCRIT 36.1 % (42.0-52.0); HEMOGLOBIN 11.5 g/dl (14.0-18.0); LYMPHOCYTES # 0.7 10^3/ul (0.8-2.9); LYMPHOCYTES % 10.6 % (15.0-51.0); MEAN CORPUSCULAR HEMOGLOBIN 25.3 pg (29.0-33.0); MEAN CORPUSCULAR HGB CONC 31.9 g/dl (32.0-37.0); MEAN CORPUSCULAR VOLUME 79.5 fl (82.0-101.0); MEAN PLATELET VOLUME 10.1 fl (7.4-10.4); MONOCYTE # 0.3 10^3/ul (0.3-0.9); MONOCYTES % 4.8 % (0.0-11.0); NEUTROPHIL # 5.5 10^3/ul (1.6-7.5); NEUTROPHILS % 80.3 % (39.0-77.0); PLATELET COUNT 155 10^3/UL (140-415); POSITIVE DIFF @See below; RED BLOOD COUNT 4.54 10^6/ul (4.70-6.10); RED CELL DISTRIBUTION WIDTH 25.2 % (11.5-14.5)
[2019-04-13 07:38] LABS: WHITE BLOOD COUNT 6.9 10^3/ul (4.8-10.8)
[2019-04-13 07:55] LABS: ANION GAP 7 (5-13); BLOOD UREA NITROGEN 19 mg/dl (7-20); CARBON DIOXIDE 29 mmol/L (21-31); CHLORIDE 104 mmol/L (97-110); CREATININE 0.71 mg/dl (0.61-1.24); Estimated GFR > 60 mL/min (>60); GLUCOSE 92 mg/dl (70-220); POTASSIUM 3.3 mmol/L (3.5-5.1); SODIUM 140 mmol/L (135-144)
[2019-04-13 07:57] LABS: MAGNESIUM 1.7 mg/dl (1.7-2.5)
[2019-04-13 07:57] LABS: PHOSPHORUS 3.9 mg/dl (2.5-4.9)
[2019-04-13] MEDS: FERROUS FUMARATE (SR) TAB PO ×2 (09:09→21:02)
[2019-04-13] MEDS: DOCUSATE SODIUM 100 MG CAP PO ×2 (09:09→21:02)
[2019-04-13] MEDS: ENOXAPARIN 40 MG/0.4 ML SYG SC (09:10)
[2019-04-13] MEDS: POTASSIUM CHLORIDE (SR) 20 MEQ TAB PO (13:21)
[2019-04-13] MEDS: MAGNESIUM SULFATE 2 GM/50 ML 50 ML IVPB (13:21)
[2019-04-13] MEDS: LACTULOSE 30ML CUP PO (17:19)
[2019-04-13] MEDS: TOBRAMYCIN 500 MG in DEXTROSE 5% 100 ML IVPB (18:12)
[2019-04-14 06:53] LABS: ADD MAN DIFF? NO
[2019-04-14 06:58] LABS: WHITE BLOOD COUNT 5.7 10^3/ul (4.8-10.8)
[2019-04-14 06:58] LABS: ABNORMAL IP MESSAGE 1; BASOPHILS % 0.2 % (0.0-2.0); EOSINOPHILS # 0.3 10^3/ul (0.0-0.5); EOSINOPHILS % 4.9 % (0.0-7.0); HEMATOCRIT 33.7 % (42.0-52.0); HEMOGLOBIN 10.7 g/dl (14.0-18.0); LYMPHOCYTES # 0.7 10^3/ul (0.8-2.9); LYMPHOCYTES % 11.9 % (15.0-51.0); MEAN CORPUSCULAR HEMOGLOBIN 25.4 pg (29.0-33.0); MEAN CORPUSCULAR HGB CONC 31.8 g/dl (32.0-37.0); MEAN PLATELET VOLUME 10.5 fl (7.4-10.4); MONOCYTE # 0.3 10^3/ul (0.3-0.9); NEUTROPHIL # 4.4 10^3/ul (1.6-7.5); NEUTROPHILS % 76.6 % (39.0-77.0); PLATELET COUNT 149 10^3/UL (140-415); POSITIVE DIFF @See below; RED BLOOD COUNT 4.21 10^6/ul (4.70-6.10); RED CELL DISTRIBUTION WIDTH 25.2 % (11.5-14.5)
[2019-04-14 07:14] LABS: MAGNESIUM 1.9 mg/dl (1.7-2.5)
[2019-04-14 07:14] LABS: PHOSPHORUS 3.2 mg/dl (2.5-4.9)
[2019-04-14 07:15] LABS: ANION GAP 8 (5-13); BLOOD UREA NITROGEN 20 mg/dl (7-20); CALCIUM 8.7 mg/dl (8.4-10.2); CARBON DIOXIDE 27 mmol/L (21-31); CHLORIDE 104 mmol/L (97-110); Estimated GFR > 60 mL/min (>60); GLUCOSE 104 mg/dl (70-220); POTASSIUM 3.6 mmol/L (3.5-5.1); SODIUM 139 mmol/L (135-144)
[2019-04-14] MEDS: ENOXAPARIN 40 MG/0.4 ML SYG SC (10:22)
[2019-04-14] MEDS: FERROUS FUMARATE (SR) TAB PO ×2 (10:23→21:18)
[2019-04-14] MEDS: DOCUSATE SODIUM 100 MG CAP PO ×2 (10:23→21:18)
[2019-04-14] MEDS: morphine 2 MG INJ IV (14:57)
[2019-04-14] MEDS: BISACODYL (EC) 5 MG TAB PO (17:44)
[2019-04-15] MEDS: TOBRAMYCIN 500 MG in DEXTROSE 5% 100 ML IVPB (05:16)
[2019-04-15] MEDS: FERROUS FUMARATE (SR) TAB PO ×2 (09:39→20:15)
[2019-04-15] MEDS: DOCUSATE SODIUM 100 MG CAP PO ×2 (09:39→20:15)
[2019-04-15] MEDS: ENOXAPARIN 40 MG/0.4 ML SYG SC (09:40)
[2019-04-16 06:30] LABS: ADD MAN DIFF? NO
[2019-04-16 06:38] LABS: ABNORMAL IP MESSAGE 1; BASOPHILS % 0.2 % (0.0-2.0); EOSINOPHILS # 0.3 10^3/ul (0.0-0.5); EOSINOPHILS % 5.2 % (0.0-7.0); LYMPHOCYTES # 0.7 10^3/ul (0.8-2.9); LYMPHOCYTES % 14.1 % (15.0-51.0); MEAN CORPUSCULAR HEMOGLOBIN 25.3 pg (29.0-33.0); MEAN CORPUSCULAR HGB CONC 30.6 g/dl (32.0-37.0); MEAN CORPUSCULAR VOLUME 82.9 fl (82.0-101.0); MEAN PLATELET VOLUME 10.4 fl (7.4-10.4); MONOCYTE # 0.3 10^3/ul (0.3-0.9); MONOCYTES % 6.5 % (0.0-11.0); NEUTROPHIL # 3.7 10^3/ul (1.6-7.5); NEUTROPHILS % 73.8 % (39.0-77.0); PLATELET COUNT 127 10^3/UL (140-415); POSITIVE DIFF @See below; RED BLOOD COUNT 4.34 10^6/ul (4.70-6.10); RED CELL DISTRIBUTION WIDTH 25.2 % (11.5-14.5)
[2019-04-16] MEDS: BISACODYL (EC) 5 MG TAB PO (06:42)
[2019-04-16 07:06] LABS: ANION GAP 7 (5-13); BLOOD UREA NITROGEN 13 mg/dl (7-20); CALCIUM 9.2 mg/dl (8.4-10.2); CARBON DIOXIDE 31 mmol/L (21-31); CHLORIDE 101 mmol/L (97-110); CREATININE 0.63 mg/dl (0.61-1.24); Estimated GFR > 60 mL/min (>60); GLUCOSE 105 mg/dl (70-220); POTASSIUM 3.3 mmol/L (3.5-5.1); SODIUM 139 mmol/L (135-144)
[2019-04-16 07:11] LABS: PHOSPHORUS 3.5 mg/dl (2.5-4.9)
[2019-04-16 07:11] LABS: MAGNESIUM 1.8 mg/dl (1.7-2.5)
[2019-04-16] MEDS: ENOXAPARIN 40 MG/0.4 ML SYG SC (09:09)
[2019-04-16] MEDS: DOCUSATE SODIUM 100 MG CAP PO ×2 (09:10→21:46)
[2019-04-16] MEDS: FERROUS FUMARATE (SR) TAB PO ×2 (09:10→21:46)
[2019-04-16] MEDS: POTASSIUM CHLORIDE (SR) 10 MEQ TAB PO (16:08)
[2019-04-16] MEDS: TOBRAMYCIN 500 MG in DEXTROSE 5% 100 ML IVPB (18:58)
[2019-04-17] MEDS: BISACODYL (EC) 5 MG TAB PO (04:59)
[2019-04-17 05:41] LABS: ADD MAN DIFF? NO
[2019-04-17 05:45] LABS: WHITE BLOOD COUNT 3.8 10^3/ul (4.8-10.8)
[2019-04-17 05:45] LABS: ABNORMAL IP MESSAGE 1; BASOPHILS % 0.3 % (0.0-2.0); EOSINOPHILS # 0.3 10^3/ul (0.0-0.5); EOSINOPHILS % 8.4 % (0.0-7.0); HEMATOCRIT 35.1 % (42.0-52.0); HEMOGLOBIN 10.8 g/dl (14.0-18.0); LYMPHOCYTES # 0.9 10^3/ul (0.8-2.9); LYMPHOCYTES % 23.7 % (15.0-51.0); MEAN CORPUSCULAR HEMOGLOBIN 25.6 pg (29.0-33.0); MEAN CORPUSCULAR HGB CONC 30.8 g/dl (32.0-37.0); MEAN CORPUSCULAR VOLUME 83.2 fl (82.0-101.0); MEAN PLATELET VOLUME 10.4 fl (7.4-10.4); MONOCYTE # 0.4 10^3/ul (0.3-0.9); MONOCYTES % 9.5 % (0.0-11.0); NEUTROPHIL # 2.2 10^3/ul (1.6-7.5); NEUTROPHILS % 57.8 % (39.0-77.0); PLATELET COUNT 122 10^3/UL (140-415); POSITIVE DIFF @See below; RED BLOOD COUNT 4.22 10^6/ul (4.70-6.10); RED CELL DISTRIBUTION WIDTH 25.1 % (11.5-14.5)
[2019-04-17 06:11] LABS: ANION GAP 7 (5-13); BLOOD UREA NITROGEN 14 mg/dl (7-20); CALCIUM 9.3 mg/dl (8.4-10.2); CARBON DIOXIDE 30 mmol/L (21-31); CHLORIDE 102 mmol/L (97-110); CREATININE 0.66 mg/dl (0.61-1.24); Estimated GFR > 60 mL/min (>60); GLUCOSE 96 mg/dl (70-220); POTASSIUM 3.3 mmol/L (3.5-5.1); SODIUM 139 mmol/L (135-144)
[2019-04-17 06:13] LABS: PHOSPHORUS 4.1 mg/dl (2.5-4.9)
[2019-04-17 06:13] LABS: MAGNESIUM 1.9 mg/dl (1.7-2.5)
[2019-04-17] MEDS: FERROUS FUMARATE (SR) TAB PO ×2 (09:42→21:14)
[2019-04-17] MEDS: DOCUSATE SODIUM 100 MG CAP PO ×2 (09:42→21:14)
[2019-04-17] MEDS: ENOXAPARIN 40 MG/0.4 ML SYG SC (09:44)
[2019-04-17] MEDS: POTASSIUM CHLORIDE (SR) 20 MEQ TAB PO (12:36)
[2019-04-18] MEDS: TOBRAMYCIN 500 MG in DEXTROSE 5% 100 ML IVPB (05:25)
[2019-04-18] MEDS: BISACODYL (EC) 5 MG TAB PO (05:25)
[2019-04-18 06:01] LABS: ADD MAN DIFF? NO
[2019-04-18 06:11] LABS: ABNORMAL IP MESSAGE 1; BASOPHILS % 0.3 % (0.0-2.0); EOSINOPHILS # 0.3 10^3/ul (0.0-0.5); EOSINOPHILS % 9.9 % (0.0-7.0); HEMATOCRIT 36.1 % (42.0-52.0); HEMOGLOBIN 11.2 g/dl (14.0-18.0); LYMPHOCYTES # 0.8 10^3/ul (0.8-2.9); LYMPHOCYTES % 26.1 % (15.0-51.0); MEAN CORPUSCULAR HEMOGLOBIN 25.8 pg (29.0-33.0); MEAN CORPUSCULAR VOLUME 83.2 fl (82.0-101.0); MEAN PLATELET VOLUME 10.5 fl (7.4-10.4); MONOCYTE # 0.3 10^3/ul (0.3-0.9); MONOCYTES % 9.2 % (0.0-11.0); NEUTROPHIL # 1.6 10^3/ul (1.6-7.5); NEUTROPHILS % 54.2 % (39.0-77.0); PLATELET COUNT 144 10^3/UL (140-415); POSITIVE DIFF @See below; RED BLOOD COUNT 4.34 10^6/ul (4.70-6.10)
[2019-04-18 06:34] LABS: PHOSPHORUS 3.9 mg/dl (2.5-4.9)
[2019-04-18 06:34] LABS: MAGNESIUM 1.8 mg/dl (1.7-2.5)
[2019-04-18 06:47] LABS: ANION GAP 7 (5-13); BLOOD UREA NITROGEN 16 mg/dl (7-20); CALCIUM 9.2 mg/dl (8.4-10.2); CARBON DIOXIDE 29 mmol/L (21-31); CHLORIDE 105 mmol/L (97-110); CREATININE 0.67 mg/dl (0.61-1.24); Estimated GFR > 60 mL/min (>60); GLUCOSE 105 mg/dl (70-220); POTASSIUM 3.9 mmol/L (3.5-5.1); SODIUM 141 mmol/L (135-144)
[2019-04-18] MEDS: DOCUSATE SODIUM 100 MG CAP PO ×2 (09:07→21:34)
[2019-04-18] MEDS: FERROUS FUMARATE (SR) TAB PO ×2 (09:07→21:34)
[2019-04-18] MEDS: ENOXAPARIN 40 MG/0.4 ML SYG SC (09:07)
[2019-04-18] MEDS: HYDROCODONE/APAP (5/325) TAB PO (13:12)
[2019-04-19] MEDS: BISACODYL (EC) 5 MG TAB PO (06:16)
[2019-04-19] MEDS: FERROUS FUMARATE (SR) TAB PO (08:56)
[2019-04-19] MEDS: DOCUSATE SODIUM 100 MG CAP PO (08:56)
[2019-04-19] MEDS: ENOXAPARIN 40 MG/0.4 ML SYG SC (08:58)
[2019-04-19] MEDS: SOD FERRIC GLUC COMPLX 125 MG in SOD CHLORIDE 0.9% 100 ML IVPB (12:41)
[2019-04-19] MEDS: TOBRAMYCIN 500 MG in DEXTROSE 5% 100 ML IVPB (16:24)
[2019-04-19] MEDS: NYSTATIN 30 GM POWDER BTL TOP (16:24)
== END 2019-04-19 18:46 | disposition home health service (06) | DRG 815 ==
LOC: FTE 10:13 → PP2 14:17
DX: D73.3 Abscess of spleen (principal); J90 Pleural effusion, not elsewhere classified; E87.2 Acidosis; J98.11 Atelectasis; E66.9 Obesity, unspecified; Z68.28 Body mass index [BMI] 28.0-28.9, adult; D50.9 Iron deficiency anemia, unspecified; F32.9 Major depressive disorder, single episode, unspecified; D72.829 Elevated white blood cell count, unspecified
CPT/HCPCS: 36415; 74160; 76705; 80048; 80053; 80200; 83605; 83735; 84100; 85025; 85651; 86140; 87040-91; 87070; 87081; 96360; 96361; 99285-25